=== PATIENT | female | born 1950 | race Caucasian/White ===

== ENCOUNTER → 2023-10-27 | Outpatient (CLI) | payer MEDICARE, SELFPAY ==
--- NOTE | 2023-10-27 14:17 | BI_ITS ---
MAMMOGRAPHY - BILATERAL SCREENING REASON FOR EXAM: Female, 73 years old. Routine annual screening examination. PERTINENT HISTORY: Sister with breast cancer. TECHNIQUE: Digital bilateral breast casper (3D mammographic acquisition) in the CC and MLO projections. 2-D mediolateral oblique (MLO) and craniocaudad (CC) views of both breasts were obtained. CAD: Full Field Digital Mammography with Computer Added Detection was performed. COMPARISON: None. Baseline examination. FINDINGS: Breast Composition: The breasts are almost entirely fatty. There are no dominant masses or suspicious calcifications. No other significant abnormalities are identified. There has been no significant change since the prior study. BI/SCRN MAMM (CAD)W/CASPER BILAT IMPRESSION: Stable bilateral screening mammogram. Yearly follow-up mammogram recommended. (A) ASSESSMENT CATEGORY: BIRADS Category 1: Negative. A letter regarding these results will be sent to the patient by the facility within 30 days. Approximately 10% of breast cancers are not detected by mammography. A normal mammogram should not delay biopsy of a clinically suspicious abnormality. [id number] Electronically Signed: Roshan Hobson MD at 15:10 EDT ,
--- NOTE | 2023-10-27 14:35 | BD_ITS ---
STUDY: DUAL ENERGY X-RAY ABSORPTIOMETRY / DXA REASON FOR EXAM: Female, 73 years old. [id number] TECHNIQUE: Bone Mineral Density (BMD) measurements of lumbar spine and bilateral hips were obtained. COMPARISON: None. FINDINGS: Lumbar Spine (L1-L4): g/cm2 (0.971) / T-score (-0.4) / Z-score (1.8) Findings are suggestive of normal bone density with a low fracture risk. Left Femur Total: g/cm2 (0.875) / T-score (-0.6) / Z-score (1.2) Left Femoral Neck: g/cm2 (0.696) / T-score (-1.4) / Z-score (0.6) Right Femur Total: g/cm2 (0.891) / T-score (-0.4) / Z-score (1.3) Right Femoral Neck: g/cm2 (0.783) / T-score (-0.6) / Z-score (1.4) BD/Dexa Bone Density Study IMPRESSION: The patient is considered osteopenic as outlined below according to World [place] C Organization (WHO) criteria with a low fracture risk. Reference Information: The T-score is the number of standard deviations above or below the standard which is normal for young adults at their peak bone mineral density. The World Health Organization (WHO) interprets the T-scores as follows: Above -1 Normal bone density Between -1 and -2.5 Osteopenia Equal to / or below -2.5 Osteoporosis As a practical clinical guideline, osteopenia may be graded as follows: Mild -1 through -1.5 Moderate -1.6 through -2.0 Severe -2.1 through -2.4 The Z-score is the number of standard deviations above or below age-matched controls. A Z-score of less than -1.5 would be considered abnormal. References: 1. NIH Osteoporosis and Related Bone Diseases www osteo.org 2. International Society for Clinical Densitometry www iscd.org 3. National Osteoporosis Foundation www nof.org Electronically Signed: Roshan Hobson MD at 13:38 EDT ,
== END | disposition home or self-care (01) ==
PROVIDERS: PCP Nurse Practitioner Family; Referring Provider Nurse Practitioner Family; Visit Provider Nurse Practitioner Family
DX: Z12.31 Encounter for screening mammogram for malignant neoplasm of breast (principal); Z78.0 Asymptomatic menopausal state
CPT/HCPCS: 77063; 77067; 77080

== ENCOUNTER → 2024-06-28 | Outpatient (CLI) | payer MEDICARE, SELFPAY ==
--- NOTE | 2024-06-28 09:43 | CDU_ITS ---
Reason For Study Reason For Study: Carotid artery stenosis, Dizziness Rt. Velocities/BP Lt. Velocities/BP Prox CCA 91.9/23.9 cm/sec. Prox CCA 79.5/23.4 cm/sec. Mid CCA 82.5/23 cm/sec. Mid CCA 77.3/21.2 cm/sec. Dist CCA 71/17.3 cm/sec. Dist CCA 61.9/21.2 cm/sec. Prox ICA 53.5/17.7 cm/sec. Prox ICA 42.8/15.4 cm/sec. Mid ICA 93.8/38.1 cm/sec. Mid ICA 57.9/21.7 cm/sec. Dist ICA 97.1/33.3 cm/sec. Dist ICA 96.4/26.7 cm/sec. Rt. ICA/CCA = 1.18. Lt. ICA/CCA = 1.25. Prox ECA 100.3/15.7 cm/sec. Prox ECA 101.1/11.4 cm/sec. Rt. Vert. 67.4/8 cm/sec. Lt. Vert. 47.9/11.6 cm/sec. Right Extracranial There is homogeneous, smooth atherosclerotic plaque noted in the right common carotid artery. There is intimal thickening but no significant atherosclerotic plaque noted in the right internal carotid artery. There is intimal thickening but no significant atherosclerotic plaque noted in the right external carotid artery. Antegrade flow is noted in the right vertebral artery. Left Extracranial There is homogeneous, smooth atherosclerotic plaque noted in the left common carotid artery. There is homogeneous, smooth atherosclerotic plaque noted in the left internal carotid artery. There is heterogeneous, irregular atherosclerotic plaque noted in the left external carotid artery. Antegrade flow is noted in the left vertebral artery. Procedure Carotid Duplex [id number]. This is a Carotid Duplex examination using B-mode, color flow and specral Doppler. Exam performed in department. VL/Carotid Duplex Ultrasound Interpretation Summary No significant atherosclerotic plaque or stenosis noted in the right internal c arotid artery. Mild (<50%) stenosis left extracranial internal carotid. Flow within the vertebral arteries is antegrade bilaterally. Ordering Physician: Giulia Gomez Referring Physician: Giulia Gomez Performed By: Yesenia Joy RVT
== END | disposition home or self-care (01) ==
LOC: CVS 09:42
PROVIDERS: PCP Nurse Practitioner Family; Referring Provider Nurse Practitioner Family; Visit Provider Nurse Practitioner Family
DX: I65.23 Occlusion and stenosis of bilateral carotid arteries (principal)
CPT/HCPCS: 93880

== ENCOUNTER 2024-08-20 19:44 | Emergency (ER) | payer MEDICARE, SELFPAY ==
[2024-08-20 19:45] VITALS: BP 136/80; PULSE 93; RESP 16; TEMP 36.4; O2SAT 100; BMI 28.1
--- NOTE | 2024-08-20 20:03 | RAD_ITS ---
PROCEDURE: KNEE 4 OR MORE VIEWS 08/20/2024 REASON FOR EXAM: RASH TECHNIQUE: KNEE 4 OR MORE VIEWS COMPARISON: None. FINDINGS: Bones: Diffuse osseous demineralization. No acute fracture. No aggressive osseous lesions. Joints: Severe degenerative changes. Effusion: Small joint effusion. Soft tissues: Soft tissues are unremarkable. RAD/Knee 4 or More Views IMPRESSION: DEGENERATIVE OSTEOARTHROSIS. NO ACUTE FINDINGS. Reading Location: [id number]
[2024-08-20] MEDS: 0.9% Normal Saline (1000mL) 1,000 ML 999 ML IV (20:09)
--- NOTE | 2024-08-20 20:19 | EX.ED.DYSGE1 ---
HPI History of Present Illness Chief Complaint: Rash Narrative Narrative: Patient is a 74-year-old female with no known significant past medical history who presents to the emergency department the chief complaint of rash on the right leg. States that yesterday she noted that she had a spot that was very itchy on her right leg and states that she noted today that the rash worsened and she was concerned that this may be related to tick bite. Patient denies any known tick exposure. Patient notes that she noted the rash was spreading and becoming more red therefore she became concerned and came here to be further evaluated. Patient denies any possibility of poison oak or poison delonte exposure. Patient's denies any new medications. PFSH PFS Home Medications ?Medication ?Instructions ?Recorded ?Last Taken ?Type doxycycline hyclate 100 mg capsule 100 mg PO BID 7 days #14 caps 08/20/24 Unknown Rx losartan 50 mg-hydrochlorothiazide 1 tab PO DAILY 08/20/24 Unknown History 12.5 mg tablet Allergy/AdvReac Type Severity Reaction Status Date / Time No Known Allergies Allergy Verified 08/20/24 19:47 Family History no significant family his Surgical History no surgical history Social History Smoking Status: Never smoker ROS ROS ED ROS Narrative Constitutional: Denies any fevers, chills, headaches Neurological: Denies numbness, weakness, tingling Musculoskeletal: Denies any knee pain Skin: Complains of rash as noted above EXAM Physical Exam Narrative Exam Narrative: General: Patient was lying in bed rest comfortably did not appear to be acute distress Head: Atraumatic, normocephalic Eyes: PERRL bilaterally, EOMI bilateral, no conjunctival injection noted Neck: Soft, supple, trachea midline Cardiovascular: Regular rate and rhythm no murmurs gallops rubs noted Respiratory: Clear to auscultation bilaterally Musculoskeletal: Patient has full range of motion of her knee without any pain Extremities: DP pulses +2/4 in bilateral extremities, +5/5 strength noted in the bilateral upper and lower extremities Neurological: Patient is following commands knew that she was at [facility] year is 2024 Skin: Patient has a raised rash that is red in nature as well as blanches no petechia no sloughing of the skin no purpura noted no crepitus noted Const Vital Signs: 08/20/24 19:45 Temperature 97.5 F L Temperature Source Temporal Pulse Rate 93 Respiratory Rate 16 Blood Pressure 136/80 H Blood Pressure Mean 98 Pulse Ox 100 Oxygen Delivery Method Room Air MDM MDM MDM Narrative Medical decision making narrative: Patient is a 74-year-old female who presented to the emergency department with chief complaint of rash to the right leg. On the differential diagnosis includes but limited to contact dermatitis, cellulitis, pemphigus vulgaris although I have low suspicion for this as this is not a painful rash, bullous pemphigoid, cellulitis. Once workup is obtained reviewed she will be reevaluated. Patient be given a gram of Rocephin. Patient CBC was reviewed showed no evidence leukocytosis white blood count normal at 8, hemoglobin 13.8, platelet count of 242. Patient's sodium normal 140, potassium 4, creatinine normal at 1.08. Patient AST and ALT were 16 and 9 respectively. Patient's lactic acid normal at 1.6. Patient's x-ray of her knee reviewed by myself and by radiology showed degenerative osteoarthritis no other acute findings. On reevaluation the patient the rash is the same when she arrived and has not worsened. On reevaluation patient and she would like to go home this point time. She was advised to keep a close eye on this rash. We will place her on doxycycline and she was advised to take this as prescribed. She was encouraged to follow-up with her doctor in the outpatient setting otherwise. She is agreeable to plan all question concerns answered she was discharged home in stable condition Lab Data Labs: Laboratory Results - last 24 hr 08/20/24 20:05 WBC 8.0 RBC 4.54 Hgb 13.8 Hct 40.2 MCV 88.5 MCH 30.4 MCHC 34.3 RDW Std Deviation 46.9 H RDW Coeff of [place] 14.5 Plt Count 242 MPV 11.9 Immature Gran % (Auto) 0.300 Neut % (Auto) 63.6 Lymph % (Auto) 22.7 [place] % (Auto) 8.9 Eos % (Auto) 3.9 Baso % (Auto) 0.6 Absolute Neuts (auto) 5.1 Absolute Lymphs (auto) 1.81 Nucleated RBC % 0 Sodium 140 Potassium 4.0 Chloride 103 Carbon Dioxide 24.6 Anion Gap 12 BUN 17 Creatinine 1.08 Estim Creat Clear Calc 38.54 L Est GFR (MDRD) Non-Af 54 L BUN/Creatinine Ratio 16.1 Glucose 112 H Lactic Acid 1.6 Calcium 9.4 Total Bilirubin 0.25 AST 16 ALT 9 Alkaline Phosphatase 68 Total Protein 7.1 Albumin 3.8 Globulin 3.3 Albumin/Globulin Ratio 1.2 Radiography Diagnostic Testing: Clinical Impression(s) from Imaging Studies Knee X-Ray 08/20/24 20:03 IMPRESSION: DEGENERATIVE OSTEOARTHROSIS. NO ACUTE FINDINGS. Reading Location: [facility] Discharge Plan Triage Chief Complaint: Rash ED Provider: Lalo Honeycutt Dx/Rx/DC Orders Clinical Impression: Rash, Cellulitis Prescriptions: New doxycycline hyclate 100 mg capsule 100 mg PO BID 7 Days Qty: 14 0RF No Action losartan-hydrochlorothiazide 50-12.5 mg tablet 1 tab PO DAILY Primary Care Provider: Giulia Gomez Referrals: Giulia Gomez, [facility] [Primary Care Provider] - Activity Restrictions/Additional Instructions: Take antibiotics as prescribed. Return with worsening symptoms or any other concerns. Keep a close eye on this if this is rapidly expanding and worsening you need to return to the emergency department immediately. According to the online website the pharmacy at [facility] will be open tomorrow at 10 AM therefore a prescription was sent there Print Language: Mongolian Disposition Disposition: Home, Self Care
--- OUTSIDE RECORDS SUMMARY | 2024-08-20 20:46 | XMS RPT_ITS | CCD ---
Author Organization [facility] Care Team Providers Care Seed Cleaner Name Role Phone JENNIFER KNOX Consulting Unavailable IDRIS HORNER DO Attending Unavailable IDRIS HORNER DO Primary Care Unavailable IDRIS HORNER DO Admitting Unavailable JENNIFER KNOX Referring Unavailable PROVIDER, UNKNOWN Consulting Unavailable Jason PROPERTY CLAIM REP-C, Jennifer Primary Care Provider [phone] Jason PROPERTY CLAIM REP-C, Jennifer Attending Provider [phone] Jason PROPERTY CLAIM REP-C, Jennifer Referring Provider Jennifer Knox Referring Unavailable Jennifer Knox Primary Care Unavailable Jennifer Knox Attending Unavailable Jennifer Knox Referring Unavailable Jason, Jennifer Primary Care Unavailable Jennifer Knox Attending Unavailable Problems Active Problems Problem Classification Problem Date Documented Da te Episodic/Chronic Occlusion or stenosis of precerebral arteries (1 source) Occlusion and stenosis of bilateral carotid arteries; Translations: [Occlusion and stenosis of bilateral carotid arteries] Onset: 07-03-2024 Chronic Past or Other Problems Problem Classification Problem Date Documented Da te Episodic/Chronic Other screening for suspected conditions (not mental disorders or infectious disease) (1 source) Encounter for screening mammogram for malignant neoplasm of breast; Translations: [Encounter for screening mammogram for malignant neoplasm of breast] Onset: 11-18-2023 Episodic Results Test Name Value Interpretation Reference Range Facility Carotid Duplex Ultrasoundon 06-28-2024 Carotid Duplex Ultrasound [facility] [address] [place] [address] Carotid Duplex Ultrasound 06/28/24 0946 MR#: [id number] Acct: [id number] Name: ALISIA MANDUJANO Rep #: [id number] : 1950 74 From: Lucio Austin MD Attending Dr: Jennifer Knox, PROPERTY CLAIM REP-C Status: REG CLI Ordering Dr: Jennifer Knox PROPERTY CLAIM REP-C Date: 06/28/24 Location: [facility] Sex: F C Admitted: Reason For Study Reason For Study: Carotid artery stenosis, Dizziness Rt. Velocities/BP Lt. Velocities/BP Prox CCA 91.9/23.9 cm/sec. Prox CCA 79.5/23.4 cm/sec. Mid CCA 82.5/23 cm/sec. Mid CCA 77.3/21.2 cm/sec. Dist CCA 71/17.3 cm/sec. Dist CCA 61.9/21.2 cm/sec. Prox ICA 53.5/17.7 cm/sec. Prox ICA 42.8/15.4 cm/sec. Mid ICA 93.8/38.1 cm/sec. Mid ICA 57.9/21.7 cm/sec. Dist ICA 97.1/33.3 cm/sec. Dist ICA 96.4/26.7 cm/sec. Rt. ICA/CCA = 1.18. Lt. ICA/CCA = 1.25. Prox ECA 100.3/15.7 cm/sec. Prox ECA 101.1/11.4 cm/sec. Rt. Vert. 67.4/8 cm/sec. Lt. Vert. 47.9/11.6 cm/sec. Right Extracranial There is homogeneous, smooth atherosclerotic plaque noted in the right common carotid artery. There is intimal thickening but no significant atherosclerotic plaque noted in the right internal carotid artery. There is intimal thickening but no significant atherosclerotic plaque noted in the right external carotid artery. Antegrade flow is noted in the right vertebral artery. Left Extracranial There is homogeneous, smooth atherosclerotic plaque noted in the left common carotid artery. There is homogeneous, smooth atherosclerotic plaque noted in the left internal carotid artery. There is heterogeneous, irregular atherosclerotic plaque noted in the left external carotid artery. Antegrade flow is noted in the left vertebral artery. Procedure Carotid Duplex 52396. This is a Carotid Duplex examination using B-mode, color flow and specral Doppler. Exam performed in department. VL/Carotid Duplex Ultrasound Interpretation Summary No significant atherosclerotic plaque or stenosis noted in the right internal carotid artery. Mild (<50%) stenosis left extracranial internal carotid. Flow within the vertebral arteries is antegrade bilaterally. Ordering Physician: Jennifer Knox Referring Physician: Jennifer Knox Performed By: Yesenia Joy RVT 06/28/241743 Date Lucio Austin MD CC: PROPERTY CLAIM REP-C Jennifer Knox Date Dictated: 06/28/24945 Date Transcribed: 06/28/241743 Lace Burn Out Tender: Signed [facility] Duplex ultrasound of carotid artery reportOrdered By: Lucio Austin on 06-28-2024 Study report [facility] [address] [place] [address] Carotid Duplex Ultrasound 06/28/24945 MR#: [id number] Acct: [id number] Name: ALISIA MANDUJANO Rep #:[id number] : 1950 74 From: Lucio Austin MD Attending Dr: ALEKSANDAR Morrow Status: REG CLI Ordering Dr: Jennifer Knox PROPERTY CLAIM REPIsaíasC Date: 06/28/24 Location: [facility] Sex: F C Admitted: Reason For Study Reason For Study: Carotid artery stenosis, Dizziness Rt. Velocities/BP Lt. Velocities/BP Prox CCA 91.9/23.9 cm/sec. Prox CCA 79.5/23.4 cm/sec. Mid CCA 82.5/23 cm/sec. Mid CCA 77.3/21.2 cm/sec. Dist CCA 71/17.3 cm/sec. Dist CCA 61.9/21.2 cm/sec. Prox ICA 53.5/17.7 cm/sec. Prox ICA 42.8/15.4 cm/sec. Mid ICA 93.8/38.1 cm/sec. Mid ICA 57.9/21.7 cm/sec. Dist ICA 97.1/33.3 cm/sec. Dist ICA 96.4/26.7 cm/sec. Rt. ICA/CCA = 1.18. Lt. ICA/CCA = 1.25. Prox ECA 100.3/15.7 cm/sec. Prox ECA 101.1/11.4 cm/sec. Rt. Vert. 67.4/8 cm/sec. Lt. Vert. 47.9/11.6 cm/sec. Right Extracranial There is homogeneous, smooth atherosclerotic plaque noted in the right common carotid artery. There is intimal thickening but no significant atherosclerotic plaque noted in the right internalcarotid artery. There is intimal thickening but no significant atherosclerotic plaque noted in the right externalcarotid artery. Antegrade flow is noted in the right vertebral artery. Left Extracranial There is homogeneous, smooth atherosclerotic plaque noted in the left common carotid artery. There is homogeneous, smooth atherosclerotic plaque noted in the left internal carotid artery. There is heterogeneous, irregular atherosclerotic plaque noted in the left external carotid artery. Antegrade flowis noted in the left vertebral artery. Procedure Carotid Duplex 98812. This is a Carotid Duplex examination using B-mode, color flow and specral Doppler. Exam performed in department. VL/Carotid Duplex Ultrasound Interpretation Summary No significant atherosclerotic plaque or stenosis noted in the right internal carotid artery. Mild (<50%) stenosis left extracranial internal carotid. Flow within the vertebral arteries is antegrade bilaterally. Ordering Physician: Jennifer Knox Referring Physician: Jennifer Knox Performed By: Yesenia Joy T 06/28/24 1744 Date _ Lucio Austin MD CC: PROPERTY CLAIM REP-C Jennifer Knox ~ Date Dictated: 05/06/25 0946 Date Transcribed: 06/28/24 1744 Lace Burn Out Tender: Signed [facility] Other ED MED ADMINISTRATION DETAIL on 06-12-2024 ED MED ADMINISTRATION DETAIL Rn Transport Medication Administration Record [id number] [place] [address] [id number] 06/08/2024 Patient: ALISIA MANDUJANO Sex: Female : 1950 Age: 74y MEASUREMENTS: Wt: 68.0 kg, Ht/Jovany: 70.0 in, BMI: 21.52 ALLERGIES: No known drug allergies Medication Ordered Medication Administration Date/Time IV NS 0.9 % 1000 06:35 06/08 IV NS 0.9 % 1000 mL started in bag#1 1000 mL at Started mL at 999 mL/hr 999 mL/hr over 1 hour(s) via Site# 1. Allergies verified and 06:35 06/08/2024 (NOW x1) confirmed 5 rights. IV patency established. IV site checked: no pain, Estephania Mansfield R.N. redness, or swelling. IV flushed thoroughly pre-medication Stopped administration. Information reviewed with patient including reason 09:59 06/08/2024 for taking this medication. Verbalizes understanding. Completed per Shobha Wood R.N. protocol. - 06:35 Estephania Mansfield R.N. Scanned 09:59 06/08 Medication Discontinued: bag #1. Total amount infused: 800 mL. IV patency established. IV site checked: no pain, redness, or swelling. IV flushed thoroughly post-medication administration. - 10:24 Shobha Wood R.N. Ondansetron IVP 4 06:36 06/08 Ondansetron IVP 4 mg given over 1 minute(s) via Given mg (NOW x1) Site# 1. Allergies verified and confirmed 5 rights. IV patency 06:36 06/08/2024 established. IV site checked: no pain, redness, or swelling. IV Estephania Mansfield R.N. flushed thoroughly pre-medication administration. Information Scanned reviewed with patient including reason for taking this medication. Verbalizes understanding. - 06:37 Estephania Mansfield R.N. 1 of 2 Rn Transport Medication Ordered Medication Administration Date/Time Meclizine (Antivert) 06:36 04 Meclizine (Antivert) PO 25 mg given. Allergies verified Given PO 25 mg (NOW x1) and confirmed 5 rights. Information reviewed with patient including 06:36 06/08/2024 reason for taking this medication. Verbalizes understanding. - Estephania Mansfield R.N. 06:36 Estephania Mansfield R.N. Scanned LORazepam 07:16 06/08 LORazepam (Ativan) IVP 1 mg given via Site# 1. Given (Ativan) IVP 1 mg Allergies verified. IV patency established. IV site checked: no pain, 07:16 06/08/2024 (NOW x1) redness, or swelling. IV flushed thoroughly pre-medication tracy Dubon. IVP given by nurse. Information reviewed with R.N. patient and spouse including reason for taking this medication and Scanned sedative warning. Verbalizes understanding. Medication Wastage: 1 mg wasted. - 07:18 Milton Beckman R.N. Meclizine (Antivert) 07:40 06/08 Meclizine (Antivert) PO 25 mg given. Allergies verified Given PO 25 mg (NOW x1) and confirmed 5 rights. Information reviewed with patient including 07:40 06/08/2024 reason for taking this medication. Verbalizes understanding. - Milton Beckman, 07:40 Milton Beckman R.N. R.N. Scanned Ear Wax Remover 09:04 06/08 Ear Wax Remover (Carbamide / Debrox) 5 drp given. Given (Carbamide / Given in the right ear. - 09:04 Leida Houser R.N. 09:04 06/08/2024 Debrox) 5 drp (NOW Leida Houser R.N. x1, right ear) Not Scanned 2 of 2 [facility] ED NURSES CLINICAL NOTEon ED NURSES CLINICAL NOTE Nurse Narrative Nurse Clinical Narrative [address] [place] [address] [id number] 06/08/2024 06:02:00 Patient: ALISIA MANDUJANO Sex: Female : 1950 Age: 74y Disposition: Discharge to Home Disposition Decision Time: 10:04 06/08/2024 Departure Time: 10:33 06/08/2024 TRIAGE Arrived by EMS. Historian: (patient). Primary physician (Jason Torres)). Triage time: 06:05 06/08/2024. Acuity: LEVEL 3. Chief Complaint: DIZZINESS, WEAKNESS, LIGHT HEADED and VERTIGO. Alert. No acute distress. This started just prior to arrival 0500 this AM. The patient has had weakness. ( Pt woke up with a feeling of the room dropping down. Pt did not attempt to stand up, denies CHANCE or vision changes. Pt did vomit X1 at home after EMS arrived. no diarrhea. No CP). SEPSIS SCREEN: NEGATIVE. SIRS criteria negative. No possible sources of infection. -- 06:24 06/08/24 EDT Estephania Mansfield R.N. 06:12 06/08/24. BP: 148/74 (regular cuff) taken on left arm, while lying. MAP: 99. HR: 72. Regular and normal rate. RR: 16. Regular and labored. Rate is normal. O2 saturation: 96% on room air. Temperature: 97.7 F (oral). Pain level now 0/10. -- 06:23 06/08/24 EDT Estephania Mansfield R.N. Measurements: 06:12 06/08/24 Wt: 68.0 kg, Ht/Jovany: 70.0 in, BMI: 21.52 -- 06:22 06/08/24 EDT Estephania Mansfield R.N. Medications: 1 of 5 Nurse Narrative Sutab 1.479-0.188-0.225 gram tablet: TAKE DIRECTED -- 06:26 06/08/24 EDT Estephania Mansfield R.N. losartan 50 mg-hydrochlorothiazide 12.5 mg tablet -- 06:06/08/24 EDT Estephania Mansfield R.N. losartan 50 mg-hydrochlorothiazide 12.5 mg tablet: 1 tab once a day . -- 06:28 06/08/24 EDEmiliano Mansfield R.N. Sutab 1.479-0.188-0.225 gram tablet: (Pt not taking at this time) -- 06:06/08/24 KIMBERLY Mansfield R.N. Allergies: no known drug allergies -- 06:06/08/24 KIMBERLY Mansfield R.N. Problems: Hypertension -- 06:06/08/24 KIMBERLY Mansfield R.N. ADDITIONAL SURGERIES: no known surgical history -- 06:06/08/24 KIMBERLY Mansfield R.N. History 06:06/08/24. SOCIAL HX: Never smoker. No alcohol use or drug use. The patient has not traveled outside the [place] Infectious disease exposure: No infectious disease exposure. ABUSE ASSESSMENT: The patient answered yes to the question(s) Do you feel safe in your home? and no to the question(s) Are you afraid to go home?. SELF HARM ASSESSMENT: Self harm assessment was performed. The patient answered no to the question(s) Have you recently felt down, depressed, or hopeless? and Do you have thoughts of harming or killing yourself?. FALL RISK ASSESSMENT: Fall risk assessment completed. Risk factors identified include dizziness and patient age greater than 65 years. Fall interventions initiated. Side rails up x2. Bed in low position. Brakes on. Patient in yellow slippers. Family at bedside. Call light in reach of patient. Instructed not to get up without assistance. Instructions given to patient and family including fall prevention information. Verbalizes understanding. -- 06:06/08/24 KIMBERLY Mansfield R.N. Interventions 2 of 5 Nurse Narrative 06:06/08/24. Identification band on patient. Advanced care plan discussed with patient. Patient does not have advanced directive. -- 06:06/08/24 KIMBERLY Mansfield R.N. PHYSICAL ASSESSMENT 06:45 06/08/24. GENERAL / NEURO / PSYCH: Oriented X 4. Appears anxious. Alert. Speech within normal limits. HEENT: No facial asymmetry noted. Pupils equal, round and reactive to light. Abnormal ear exam (Pt feels like the room is falling down). RESPIRATORY: Breath sounds within normal limits. Respirations not labored. CVS: Normal sinus rhythm noted. Capillary refill less than 2 seconds. GI / : Abdomen soft and nontender. SKIN: Skin is warm and dry. -- 06:45 06/08/24 KIMBERLY Mansfield R.N. NURSING PROGRESS NOTES 06:24 06/08/24. Site #1 started via IV with an 18g angiocath with aseptic technique and good blood return; 1 attempt. Blood drawn: rainbow set and moon tube(s). Labeled in the presence of the patient and sent to the lab. Saline lock flushed with 5 mL saline. -- 06:34 06/08/24 EDT Estephania Mansfield R.N. 06:34 06/08/24. Rounding: Pain: assessed pain level. Position: states comfortable. Proximity of possessions / care items: call light within easy reach. Set expectations: advised patient of rounding protocol timing. Two patient identifiers checked. Call light placed in reach. Side rails up x 2. Bed placed in lowest position. Brakes of bed on. -- 06:34 06/08/24 EDT Estephania Mansfield R.N. 06:35 06/08/24. IV NS 0.9 % 1000 mL started in bag#1 1000 mL at 999 mL/hr over 1 hour(s) via Site# 1. Allergies verified and confirmed 5 rights. IV patency established. IV site checked: no pain, redness, or swelling. IV flushed thoroughly pre-medication administration. Information reviewed with patient including (more content not included)... [facility] ED ORDER SHEET (CPOE ONLY)on 06-12-2024 ED ORDER SHEET (CPOE ONLY) Order Sheet Order Sheet [address] [place] [address] [id number] 06/08/2024 Patient: ALISIA MANDUJANO Sex: Female : 1950 Age: 74y MEASUREMENTS: Wt: 68.0 kg, Ht/Jovany: 70.0 in, BMI: 21.52 ALLERGIES: No known drug allergies MEDICATION/IV/DRIP/FLU ID ORDERS Order Description Priority Entered Acknowledged Completed IV NS 0.9 %1000 mL at 999 06:22 06/08/2024 06:29 06:35 mL/hr (NOW x1) Idris Horner D.O. 06/08/2024 06/08/2024 Estephania Rutt, R.N. Estephania Rutt, R.N. Ondansetron IVP4 mg (NOW x1) 06:23 06/08/2024 06:29 06:37 Idris Horner D.O. 06/08/2024 06/08/2024 Joaquin Mendoza R.N. Meclizine (Antivert) PO25 mg 06:23 06/08/2024 06:29 06:36 (NOW x1) Idris Horner D.O. 06/08/2024 06/08/2024 Joaquin Mendoza R.N. LORazepam (Ativan) IVP1 mg 07:03 06/08/2024 07:18 (NOW x1) Idris Horner D.O. 06/08/2024 Milton Beckman R.N. Meclizine (Antivert) PO25 mg 07:35 06/08/2024 07:36 07:40 (NOW x1) Haroldo Case M.D. 06/08/2024 06/08/2024 Milton Rose 1 of 4 Order Sheet Joaquin Beckman R.N. Reason for ordering with alerts: Clinical consideration given --07:35 06/08/2024 Haroldo Case M.D. Ear Wax Remover (Carbamide / 08:53 06/08/2024 09:04 Debrox)5 drp (NOW x1, right ear) Haroldo Case M.D. 06/08/2024 Leida Houser R.N. LAB ORDERS Order Description Priority Entered Acknowledged Collected Completed CBC w Diff Stat Stat 06:22 06/08/2024 06:29 06/08/2024 06:29 06/08/2024 Marcial Leyva R.N. Anne Rutt, R.N. CMP Stat Stat 06:22 06/08/2024 06:29 06/08/2024 06:29 06/08/2024 Marcial Leyva R.N. Anne Rutt, R.N. Troponin-I Stat Stat 06:22 06/08/2024 06:29 06/08/2024 06:29 06/08/2024 Idris Didur, Joaquin Garcia R.N. EKG - ED Stat Stat 06:22 06/08/2024 06:29 06/08/2024 06:29 06/08/2024 Marcial Leyva R.N. Anne Rutt, R.NKatherine Lactate, Serum Stat Stat 06:22 06/08/2024 06:29 06/08/2024 06:29 06/08/2024 Marcial Leyva R.N. Anne Rutt, R.N. Urinalysis Stat Stat 06:22 06/08/2024 Cancelled: Verbal per Physician Idris Horner D.O. 10:26 EDT Shobha Wood R.N. TSH Stat Stat 06:25 06/08/2024 06:29 06/08/2024 06:30 06/08/2024 Marcial Leyva R.N. Anne Rutt, R.N. 2 of 4 Order Sheet Flu Swab (Influenzae Stat 06:27 06/08/2024 06:29 06/08/2024 06:30 06/08/2024 AAg) Stat Marcial Leyva R.N. Anne Rutt, R.N. Rapid COVID (SARS) Stat 06:27 06/08/2024 06:29 06/08/2024 06:30 06/08/2024 ANTIGEN TEST Stat Marcial Leyva R.N. Anne Rutt, R.N. DIAGNOSTIC STUDY ORDERS Order Description Priority Entered Acknowledged Completed Chest 1V Stat Stat 06:22 06/08/2024 06:29 06:43 Idris Horner D.O. 06/08/2024 06/08/2024 Joaquin Mendoza R.N. Order Comments: 06:22 06/08/2024: Status: Not . Idris Horner D.O. Reason for Study: Pneumonia CT Brain wo Cont Stat Stat 06:23 06/08/2024 06:29 06:43 Idris Horner D.O. 06/08/2024 06/08/2024 Joaquin Mendoza RAleah Reason for Study: Dizziness STAFF ORDERS Order Description Priority Entered Acknowledged Collected Completed Vital Signs every 30 06:22 06/08/2024 06:29 06/08/2024 06:30 06/08/2024 minutes Marcial Levya R.N. Anne Rutt, R.N. Supervisor Publications Production 06:22 06/08/2024 06:29 06/08/2024 06:29 06/08/2024 Marcial Leyva R.N. Anne Rutt, R.N. Oxygen titrate to 92% 06:22 06/08/2024 06:29 06/08/2024 06:30 06/08/2024 Marcial Leyva R.N. Anne Rutt, R.N. 3 of 4 Order Sheet Vitals - Orthostatic 06:23 06/08/2024 06:29 06/08/2024 10:25 06/08/2024 Marcial Leyva R.N. Natalie Yoder, R.N. Cerumen Disimpaction 08:53 06/08/2024 09:05 06/08/2024 10:25 06/08/2024 Leida Sorensen Natalie Yoder, M.D. R.N. RKatherineNKatherine [Electronically signed by Haroldo Case M.D. (06/08/2024 10:12 EDT)] 4 of 4 [facility] ED PHYSICIAN CLINICAL REPORT on 06-12-2024 ED PHYSICIAN CLINICAL REPORT Narrative Physician Clinical Narrative [address] [address] [id number] 06/08/2024 06:02:00 Patient: ALISIA MANDUJANO Sex: Female : 1950 Age: 74y Disposition: Discharge to Home Disposition Decision Time: 10:04 06/08/2024 Departure Time: 10:33 06/08/2024 Measurements Wt: 68.0 kg, Ht/Jovany: 70.0 in, BMI: 21.52 Initial Vital Sign Measured Time BP MAP HR RR O2Sat ETCO2 Temp Pain GCS RTS 06:08 06/08/2024 72 96% Time Seen: 05:54 06/08/2024. Arrived- By ambulance. Historian- patient. Independent historian- EMS personnel. HISTORY OF PRESENT ILLNESS Chief Complaint: DIZZINESS. This started today and is still present. Described as a sense of rotation. Severity described as moderate at its maximum. The patient has had nausea and vomiting. Similar symptoms previously. None. Recent medical care: Not recently seen/assessed. REVIEW OF SYSTEMS : No difficulty with urination. RESPIRATORY: No cough or difficulty breathing. CONSTITUTIONAL: No fever or chills. GI: No black stools, abdominal pain or diarrhea. CVS: No chest pain or palpitations. EYES: No double 1 of 28 Narrative vision. NEUROLOGICAL: The patient has had a headache. No weakness or fainting episodes. No difficulty walking. ENDO/HEME/LYMPH: No enlarged lymph nodes. SKIN: No skin rash. THROAT: No sore throat. Status: Not . PAST HISTORY See nurses notes. Hypertension Surgeries: no known surgical history Medications: losartan 50 mg-hydrochlorothiazide 12.5 mg tablet: 1 tab once a day . Sutab 1.479-0.188-0.225 gram tablet: (Pt not taking at this time) Allergies: no known drug allergies SOCIAL HISTORY Never smoker. No alcohol use or drug use. ADDITIONAL NOTES The nursing notes have been reviewed. PHYSICAL EXAM Appearance: Alert. Patient in mild distress. Eyes: Pupils equal, round and reactive to light. No nystagmus. ENT: TM's normal. Dry mucous membranes present. Pharynx normal. Neck: Normal inspection. Neck supple. CVS: Normal heart rate and rhythm. Heart sounds normal. Pulses normal. Respiratory: No respiratory distress. Painless inspiration. Breath sounds normal. Abdomen: Soft and nontender. No organomegaly. Back: Normal inspection. 2 of 28 Narrative Skin: Skin warm and dry. No rash. Extremities: Extremities exhibit normal ROM. No lower extremity edema. Neuro: Alert. Oriented X 3. Mood/affect normal. Speech normal. No motor deficit. No sensory deficit. LABS, X-RAYS, AND EKG 12-LEAD EKG: EKG time: 06:12 06/08/2024. Normal sinus rhythm. Rate: 65. Normal P waves. Normal QRS complex. Normal ST and T waves. The study has been interpreted contemporaneously by me. The EKG appears to be a good tracing. Interpretation time: 06:13 06/08/2024. Chest X-ray: No acute disease. Views: PA. Technique: good. The X-rays were independently viewed by me. Interpretation time: 07:14 06/08/2024. Laboratory Tests: CORONAVIRUS (SARS) ANTIGEN TEST Final DEL: 06/08/2024 06:25:00 EDT MsgRcvd: 06/08/2024 07:04 EDT Lab Test Result Reference Status Received Comments NORMAL: 06/08/2024 SARS ANTIGEN NEGATIVE Final NEGATIVE 07:04 EDT INTERNAL 06/08/2024 PASS Final CONTROL 07:04 EDT EXTERNAL QC 06/08/2024 YES Final DONE? 07:04 EDT 3 of 28 Narrative Lab Test Result Reference Status Received Comments SARS-CoV-2 THIS TEST IS BEING USED UNDER THE FDA EUA PROCEDURE. THIS ASSAY HAS BEEN VALIDATED AT [facility] FOR USE WITH NASAL AND NASOPHARYNGEAL SWAB SPECIMENS. INTERPRETIVE DATA TEST RESULTS SHOULD ALWAYS BE CONSIDERED IN THE CONTEXT OF CLINICAL OBSERVATIONS AND EPIDEMIOLOGICAL DATA IN MAKING FINAL DIAGNOSIS AND PATIENT MANAGEMENT DECISIONS. PATIENT MANAGEMENT SHOULD FOLLOW CURRENT CDC 4 of 28 GUIDELINES. THE [facility] SARS ANTIGEN JEAN CLAUDE DOES Narrative INFLUENZA VIRUS RAPID A/B Final DEL: 06/08/2024 06:25:00 EDT MsgRcvd: 06/08/2024 07:04 EDT Lab Test Result Reference Status Received Comments NEGATIVE 06/08/2024 INFLUENZA A Final [NEGATIVE 07:04 EDT NEGATIVE 06/08/2024 INFLUENZA B Final [NEGATIVE 07:04 EDT INTERNAL 06/08/2024 PASS Final NEG QC 07:04 EDT INTERNAL 06/08/2024 PASS Final POS QC 07:04 EDT EXTERNAL QC 06/08/2024 YES Final DONE? 07:04 EDT 5 of 28 Narrative Lab Test Result Reference Status Received Comments A NEGATIVE TEST RESULT DOES NOT EXCLUDE INFECTION WITH INFLUENZA A OR B. THEREFORE, THE RESULTS OBTAINED FROM THIS FLU TEST SHOULD BE USED IN CONJUCTION WITH CLINICAL FINDINGS TO MAKE AN ACCURATE DIAGNOSIS. A POSITIVE RESULT DOES NOT RULE OUT CO-INFECTIONS WITH OTHER PATHOGENS OR IDENTIFY ANY SPECIFIC INFLUENZA A VIRUS 06/08/2024 SEND TO IC? (more content not included)... [facility] ED SUPER BILLon 06-12-2024 ED SUPER BILL [facility] [address] [place] [address] [id number] 06/08/2024 Patient: ALISIA MANDUJANO Sex: Female : 1950 Age: 74y Facility Professional Category Item Description Code Code Quantity Fee Total Drugs Normal Saline 909932 1 $0.00 $0.00 1000cc (731909) Nurse/E/M EMERGENCY 621349 1 $0.00 $0.00 DEPT VISIT HIGH SEVERITYFUNCJ (79209-20) Nurse/IV/IM/Infusions Hydration 338998 3 $0.00 $0.00 additional hour (46777) Nurse/IV/IM/Infusions IVP additional 064492 1 $0.00 $0.00 push (20916) Nurse/IV/IM/Infusions IVP initial (57965) 125273 1 $0.00 $0.00 Grand $0.00 Total Providers Marcial Leyva M.D. 1 of 2 [facility] Chief Complaint DIZZINESS. Principal Diagnosis Acute vertigo of peripheral origin: benign positional vertigo. BPPV. ICD-10 Codes H81.10: Benign paroxysmal vertigo, unspecified ear 2 of 2 [facility] ED VISIT SUMMARYon ED VISIT SUMMARY Visit Overview Visit Overview [address] [place] [address] [phone] 06/08/2024 Patient: ALISIA MANDUJANO Sex: Female : 1950 Age: 74y 06/12/2024 01:12 AM EDT ED Arrival:06:02 06/08/2024 EDT Status:not Recent Travel:no Language:eng Adv Directive:No Isolation Status: Ethnicity:N Fall Risk:risk Infectious Disease Exposure:no Measurements:5'10 / 177.8 Self-Harm Status:risk Sepsis Screen:negative cm 150.0 lb / 68.0 kg Chief Complaint:DIZZINESS, LIGHT HEADED, VERTIGO, WEAKNESS, (0500 this AM ), (Jason ( Brian)), and (Pt woke up with a feeling of the room dropping down. Pt did not attempt to stand up, denies CHANCE or vision changes. Pt did vomit X1 at home after EMS arrived. no diarrhea. No CP) ALLERGIES No Known Drug Allergies 1 of 3 Visit Overview HOME MEDICATIONS losartan 50 mg-hydrochlorothiazide 12.5 mg tablet: 1 tab once a day . Sutab 1.479-0.188-0.225 gram tablet: (Pt not taking at this time) PAST MEDICAL HISTORY / PROBLEMS Hypertension See nurses notes PAST SURGICAL HISTORY No Surgeries SOCIAL HISTORY Smoking status: No Alcohol use: No Drug use: No ED COURSE MEDICATIONS GIVEN IN EMERGENCY DEPARTMENT 06:35 06/08/24 IV NS 0.9 % 1000 mL 999 mL/hr over 1 hour(s) 06:36 06/08/24 Meclizine (Antivert) PO 25 mg 06:36 06/08/24 Ondansetron IVP 4 mg over 1 minute(s) 07:16 06/08/24 LORazepam (Ativan) IVP 1 mg 07:40 06/08/24 Meclizine (Antivert) PO 25 mg 09:04 06/08/24 Ear Wax Remover (Carbamide / Debrox) 5 drp IV SITE INFORMATION INTAKE OUTPUT REASSESMENT (most recent) 07:31 06/08/24. Reassessment after medication administered. Nausea still present but improving. Vomiting still present but improving. Overall patient status- the patient states feels better. 2 of 3 Visit Overview VITAL SIGNS First Vitals Last Vitals Temp 06:08 06/08/24 Temp 10:06/08/24 BP 06:08 06/08/24 BP 10:06/08/24 133/69 HR 06:08 06/08/24 72 HR 10:06/08/24 72 RR 06:08 06/08/24 RR 10:06/08/24 O2 Sat 06:08 06/08/24 96% O2 Sat 10:22 06/08/24 Pain 06:08 06/08/24 Pain 10:06/08/24 ETCO2 06:08 06/08/24 ETCO2 10:22 06/08/24 GCS 06:08 06/08/24 GCS 10:22 04/16/25 RTS 06:08 06/08/24 RTS 10:22 06/08/24 PROCEDURES NURSING INTERVENTIONS LABS / STUDIES LABS / STUDIES ORDERED CBC w Diff Chest 1V CMP CT Brain wo Cont EKG - ED Flu Swab (Influenzae AAg) Lactate, Serum Rapid COVID (SARS) ANTIGEN TEST Troponin-I TSH CLINICAL IMPRESSION ACUTE VERTIGO OF PERIPHERAL ORIGIN: BENIGN POSITIONAL VERTIGO 3 of 3 Normal [facility] ED VITALS FLOW SHEETon 06-12 ED VITALS FLOW SHEET Vitals Vital Sign Flow Sheet [facility] [address] [place] [address] [phone] 06/08/2024 Patient: ALISIA MANDUJANO Sex: Female : 1950 Age: 74y Measurements Wt: 68.0 kg, Ht/Jovany: 70.0 in, BMI: 21.52 Measured Time BP MAP HR RR O2Sat ETCO2 Temp Pain GCS RTS 10:22 06/08/2024 133/69 98 72 10:07 06/08/2024 126/93 104 66 09:52 06/08/2024 134/75 94 71 09:37 06/08/2024 130/77 94 70 09:22 06/08/2024 129/74 96 68 09:10 06/08/2024 123/85 98 83 09:09 06/08/2024 123/85 93 83 09:07 06/08/2024 122/80 103 73 09:07 06/08/2024 122/80 94 79 09:06 06/08/2024 121/73 96 74 09:06 06/08/2024 121/73 89 77 08:52 06/08/2024 135/78 97 75 08:45 06/08/2024 79 93% 08:40 06/08/2024 68 92% 08:37 06/08/2024 132/78 100 72 1 of 3 Vitals Measured Time BP MAP HR RR O2Sat ETCO2 Temp Pain GCS RTS 08:35 06/08/2024 73 94% 08:30 06/08/2024 70 93% 08:25 06/08/2024 71 92% 08:22 06/08/2024 128/79 95 68 08:20 06/08/2024 73 92% 08:15 06/08/2024 67 93% 08:10 06/08/2024 75 91% 08:07 06/08/2024 138/71 93 69 08:05 06/08/2024 71 93% 08:00 06/08/2024 71 94% 07:55 06/08/2024 71 93% 07:53 06/08/2024 139/82 101 71 07:50 06/08/2024 67 91% 07:45 06/08/2024 76 91% 07:40 06/08/2024 77 92% 07:37 06/08/2024 127/71 97 77 07:35 06/08/2024 78 92% 07:30 06/08/2024 77 93% 07:25 06/08/2024 73 91% 07:22 06/08/2024 137/77 105 65 07:20 06/08/2024 66 92% 07:18 06/08/2024 128/77 95 65 07:15 06/08/2024 65 96% 07:10 06/08/2024 69 97% 06:38 06/08/2024 134/70 115 66 2 of 3 Vitals Measured Time BP MAP HR RR O2Sat ETCO2 Temp Pain GCS RTS 06:38 06/08/2024 64 94% 06:33 06/08/2024 63 96% 06:28 06/08/2024 68 97% 06:23 06/08/2024 65 92% 06:23 06/08/2024 149/74 123 63 06:18 06/08/2024 67 95% 06:12 06/08/2024 148/74 99 72 16 96% RA 97.7 F 0 06:08 06/08/2024 148/74 118 67 06:08 06/08/2024 72 96% 3 of 3 Normal [facility] CBC + DIFFon 06-08-2024 Baso # 0.01 x10EE3/UL Normal 0.00 - 0.10 [facility] Comment on above: Performed By: #### 2 29696 #### [facility],[address] [place] [address] Basophils/100 WBC (Bld) 0.2 % Normal 0.0 - 2.0 [facility] Comment on above: Performed By: #### 2 74680 #### [facility],[address] [place] [address] CBC + DIFF Normal [facility] Comment on above: Result Comment: CBC- COMPLETE BLOOD COUNT Performed By: #### 2 39647 #### [place] [address] EO # 0.27 x10EE3/UL Normal 0.00 - 0.50 [facility] Comment on above: Performed By: #### 2 73621 #### [place] [address] Eosinophils/100 WBC (Bld) 5.6 % Normal 0.0 - 7.0 [facility] Comment on above: Performed By: #### 2 73377 #### [place] [address] Erythrocyte distribution width (RBC) [Ratio] 14.3 % Normal 12.0 - 15.6 [facility] Comment on above: Performed By: #### 2 35282 #### [place] [address] Hematocrit (Bld) [Volume fraction] 40.7 % Normal 34.0 - 46.0 [facility] Comment on above: Performed By: #### 2 87707 #### [place] [address] Hemoglobin (Bld) [Mass/Vol] 14.0 g/dL Normal 12.0 - 16.0 [facility] Comment on above: Performed By: #### 2 26976 #### [place] [address] Lymph # 1.82 x10EE3/UL Normal 0.80 - 2.80 [facility] Comment on above: Performed By: #### 2 34096 #### [facility],[address] [place] [address] Lymphocytes/100 WBC (Bld) 37.9 % Normal 20.0 - 45.0 [facility] Comment on above: Performed By: #### 2 75481 #### [facility],[address] [place] [address] MANUAL DIFF N/A Normal [facility] Comment on above: Performed By: #### 2 11413 #### [facility],[address] [place] [address] MCH (RBC) [Entitic mass] 30 pg Normal 27 - 33 [facility] Comment on above: Performed By: #### 2 89082 #### [place] [address] MCHC 34 X10 3 Normal 32 - 36 [facility] Comment on above: Performed By: #### 2 28119 #### [place] [address] MCV (RBC) [Entitic vol] 87 fL Normal 80 - 99 [facility] Comment on above: Performed By: #### 2 34245 #### [place] [address] Hutchinson # 0.36 x10EE3/UL Normal 0.20 - 1.00 [facility] Comment on above: Performed By: #### 2 31574 #### [place] [address] MONOS % 7.4 % Normal 0.0 - 10.0 [facility] Comment on above: Performed By: #### 2 98262 #### [place] [address] Morphology Reggie (Bld) [Interp] N/A Normal [facility] Comment on above: Performed By: #### 2 46524 #### [place] [address] Neut # 2.35 x10EE3/UL Normal 1.50 - 7.10 [facility] Comment on above: Performed By: #### 2 45496 #### [facility],[address] [place] [address] Neutrophils/100 WBC (Bld) 48.9 % Normal 46.0 - 76.0 [facility] Comment on above: Performed By: #### 2 90445 #### [facility],[address] [place] [address] 22925 PLATELET 228 x10EE3/UL Normal 150 - 450 [facility] Comment on above: Performed By: #### 2 14542 #### [facility],[address] [place] [address] 75085 Platelet mean volume (Bld) [Entitic vol] 8.2 fL Normal 6.6 - 10.5 [facility] Comment on above: Result Comment: AUTO MATED DIFFERENTIAL Performed By: #### 2 63824 #### [facility],[address] [place] [address] 97033 RBC 4.67 x 10EE6/UL Normal 4.10 - 5.30 [facility] Comment on above: Performed By: #### 2 37627 #### [facility],[address] [place] [address] 41102 WBC 4.8 x 10EE3/UL Normal 4.5 - 10.8 [facility] Comment on above: Performed By: #### 2 86449 #### [facility],[address] [place] [address] 79595 CHEST 1 VIEWon 06-08-2024 CHEST 1 VIEW [place] [address] Patient: ALISIA MANDUJANO Phone#: : 1950 Age: 74 Gender: F Pt. Type: ER Account: [id number] Location: 2 Ordering: IDRIS HORNER Exam Date: 06/08/2024/7:06 Family Phys: JENNIFER KNOX Charge Code: 032197 Physician: Laclede Order #: [id number] Dose#: PROCEDURE: X-RAY CHEST 1 VIEW COMPARISON: None. INDICATIONS: Pneumonia. FINDINGS: LUNGS: Normal. No significant pulmonary parenchymal abnormalities. VASCULATURE: Normal. Unremarkable pulmonary vasculature. CARDIAC: Normal. No cardiac silhouette abnormality or cardiomegaly. MEDIASTINUM: Normal. No visible mass or adenopathy. PLEURA: Normal. No effusion or pleural thickening. BONES: Normal. No fracture or visible bony lesion. OTHER: Negative. CONCLUSION: No acute disease. Dictated by: Noy Jacobs MD on 06/08/2024 at 8:08 Approved by: Noy Jacobs MD on 06/08/2024 at 8:10 Normal [facility] CMP with eGFRon 06-08-2024 AGE 74 years Normal [facility] Comment on above: Performed By: #### 2 99427 #### [place] [id number] Albumin [Mass/Vol] 3.4 g/dL Normal 3.4 - 5.0 [facility] Comment on above: Performed By: #### 2 41445 #### [address] [address] Albumin/Globulin [Mass ratio] 0.9 {ratio} Normal 0.9 - 1.6 [facility] Comment on above: Performed By: #### 2 36492 #### [facility],[address] [place] [address] 14111 ALK PHOS 63 U/L Normal 46 - 116 [facility] Comment on above: Performed By: #### 2 39660 #### [address] [address] ALT [Catalytic activity/Vol] 24 U/L Normal 16 - 63 [facility] Comment on above: Performed By: #### 2 66660 #### [address] [address] Anion gap [Moles/Vol] 14 mmol/L Normal 10 - 20 [facility] Comment on above: Performed By: #### 2 55446 #### [facility],[address] [place] [address] 48961 AST [Catalytic activity/Vol] 15 U/L Normal 13 - 39 [facility] Comment on above: Performed By: #### 2 43135 #### [facility],[address] [place] [address] 26053 B/C RATIO 29 ratio Normal 0 - 30 [facility] Comment on above: Performed By: #### 2 70325 #### [facility],[address] [place] [address] 26371 Bilirubin [Mass/Vol] 0.5 mg/dL Normal 0.2 - 1.0 [facility] Comment on above: Performed By: #### 2 25154 #### [facility],[address] [place] [address] 66967 Calcium [Mass/Vol] 9.1 mg/dL Normal 8.5 - 10.1 [facility] Comment on above: Performed By: #### 2 11764 #### [facility],[address] [place] [address] 56772 Chloride [Moles/Vol] 108 mmol/L High 98 - 107 [facility] Comment on above: Performed By: #### 2 71194 #### [facility],[address] [place] [address] 57175 CMP with eGFR Normal [facility] Comment on above: Result Comment: COMP REHENSIVE METABOLIC PANEL Performed By: #### 2 30690 #### [facility],[address] [place] [address] 21808 CO2 [Moles/Vol] 22.7 mmol/L Normal 21.0 - 32.0 [facility] Comment on above: Performed By: #### 2 43163 #### [facility],[address] [place] [address]57 Creatinine [Mass/Vol] 0.90 mg/dL Normal 0.55 - 1.02 [facility] Comment on above: Performed By: #### 2 83960 #### [facility],[address] [place], [place] [id number] GFR/1.73 sq M.predicted among non-blacks MDRD (S/P/Bld) [Vol rate/Area] mL/min/{1.73_m2} Normal 60 - 999 [facility] Comment on above: Performed By: #### 2 62788 #### [facility],[address] [place] [address] Result Comment: ACCO RDING TO THE NATIONAL KIDNEY DISEASE EDUCATION PROGRAM(NKDE), A NORMAL eGFR IS A VALUE GREATER THAN OR EQUAL TO 60 ML/MIN/1.73 SQ METERS. CHRONIC KIDNEY DISEASE: <60mL/MIN/1.73 SQ METERS KIDNEY FAILURE: <15mL/MIN/1.73 SQ METERS THIS TEST SHOULD ONLY BE USED FOR PATIENTS 18 YEARS OF AGE AND OLDER. Globulin (S) [Mass/Vol] 3.6 g/dL Normal 1.5 - 3.8 [facility] Comment on above: Performed By: #### 2 81569 #### [facility],[address] [place], [place] [id number] Glucose [Mass/Vol] 129 mg/dL High 74 - 106 [facility] Comment on above: Performed By: #### 2 03728 #### [facility],[address] [place], [place] [id number] Potassium [Moles/Vol] 3.6 mmol/L Normal 3.5 - 5.1 [facility] Comment on above: Performed By: #### 2 76309 #### [facility],[address] [place], [place] [id number] Protein [Mass/Vol] 7.0 g/dL Normal 6.4 - 8.2 [facility] Comment on above: Performed By: #### 2 85023 #### [facility],[address] [place] [address] Sodium [Moles/Vol] 141 mmol/L Normal 136 - 145 [facility] Comment on above: Performed By: #### 2 81991 #### [facility],[address] [place], [place] [id number] Urea nitrogen [Mass/Vol] 26 mg/dL High 7 - 18 [facility] Comment on above: Performed By: #### 2 64736 #### [facility],[address] [place], [place] [id number] CORONAVIRUS (SARS) ANTIGEN T ESTon 06-08-2024 EXTERNAL QC DONE? YES Normal [facility] Comment on above: Performed By: #### 2 30391 #### [facility],[address] [place] [address] INTERNAL CONTROL PASS Normal [facility] Comment on above: Performed By: #### 2 34247 #### [facility],[address] [place] [address] SARS ANTIGEN Negative Normal NORMAL: NEGATIVE [facility] Comment on above: Performed By: #### 2 97168 #### [facility],[address] [place] [address] SEND TO ? NO Normal [facility] Comment on above: Result Comment: SARS -CoV-2 THIS TEST IS BEING USED UNDER THE FDA EUA PROCEDURE. THIS ASSAY HAS BEEN VALIDATED AT [facility] FOR USE WITH NASAL AND NASOPHARYNGEAL SWAB SPECIMENS. INTERPRETIVE DATA TEST RESULTS SHOULD ALWAYS BE CONSIDERED IN THE CONTEXT OF CLINICAL OBSERVATIONS AND EPIDEMIOLOGICAL DATA IN MAKING FINAL DIAGNOSIS AND PATIENT MANAGEMENT DECISIONS. PATIENT MANAGEMENT SHOULD FOLLOW CURRENT CDC GUIDELINES. THE [place]ANK[place] SARS ANTIGEN JEAN CLAUDE DOES NOT DIFFERENTIATE BETWEEN SARS-CoV & SARS-CoV-2. A POSITIVE TEST RESULT INDICATES THE PRESENCE OF SARS-CoV-2 NUCLEOCAPSID PROTEIN ANTIGEN, AND THE PATIENT IS INFECTED WITH THE VIRUS AND PRESUMED TO BE CONTAGIOUS. A NEGATIVE TEST RESULT FOR THIS TEST MEANS THAT SARS-CoV-2 NUCLEOCAPSID PROTEIN ANTIGEN WAS NOT PRESENT IN THE SPECIMEN ABOVE THE LIMIT OF DETECTION. HOWEVER, A NEGATIVE RESULT DOES NOT RULE OUT COVID-19 AND SHOULD NOT BE USED THE SOLE BASIS FOR TREATMENT OR PATIENT MANAGEMENT DECISIONS. A NEGATIVE RESULT DOES NOT EXCLUDE THE POSSIBILITY OF COVID-19. NEGATIVE RESULTS, FROM PATIENTS WITH SYMPTOM ONSET BEYOND FIVE DAYS, SHOULD BE TREATED PRESUMPTIVE AND CONFIRMATION WITH A MOLECULAR ASSAY, IF NECESSARY, FOR PATIENT MANAGEMENT, MAY BE PERFORMED. WHEN DIAGNOSTIC TESTING IS NEGATIVE, THE POSSIBLILTY OF A FALSE NEGATIVE RESULT SHOULD BE CONSIDERED IN THE CONTEXT OF A PATIENT'S RECENT EXPOSURES AND THE PRESENCE OF CLINICAL SIGNS AND SYMPTOMS CONSISTENT WITH COVID-19. THE POSSIBILITY OF A FALSE NEGATIVE RESULT SHOULD ESPECIALLY BE CONSIDERED IF THE PATIENT'S RECENT EXPOSURES OR CLINICAL PRESENTATION INDICATE THAT COVID-19 IS LIKELY, AND DIAGNOSTIC TESTS FOR OTHER CAUSES OF ILLNESS (e.g., OTHER RESPIRATORY ILLNESS) ARE NEGATIVE. IF COVID-19 IS STILL SUSPECTED BASED ON EXPOSURE HISTORY TOGETHER WITH OTHER CLINICAL FINDINGS, RE-TESTING SHOULD BE CONSIDERED BY HEALTHCARE PROVIDERS IN CONSULTATION WITH PUBLIC HEALTH AUTHORITIES. Performed By: #### 2 71409 #### [place] [address] CT BRAIN W/O CONTRASTon 05-24 CT BRAIN W/O CONTRAST [place] [address] Patient: ALISIA MANDUJANO Phone#: : 1950 Age: 74 Gender: F Pt. Type: ER Account: [id number] Location: [facility] Ordering: IDRIS HORNER Exam Date: 06/08/2024/6:55 Family Phys: JENNIFER KNOX Charge Code: [id number] Physician: Laclede Order #: [id number] Dose#: 52.3 PROCEDURE: CT BRAIN WITHOUT CONTRAST COMPARISON: None. INDICATIONS: Dizziness. TECHNIQUE: CT images were obtained without contrast material. All CT scans at this facility use dose modulation, iterative reconstruction, and/or weight based dosing when appropriate to reduce radiation dose to as low as reasonably achievable. IV CONTRAST: No IV contrast used,0ml TOTAL DOSE: 52.30 CTDIvol(mGy) FINDINGS: Artifact from material external to the patient's head somewhat limits the evaluation. CEREBRUM: No edema, hemorrhage, mass. Mild global atrophy. Patchy deep cerebral white matter hypodensities, in a patient this age group most consistent with small vessel ischemic disease. CEREBELLUM: No edema, hemorrhage, mass. Mild global atrophy. BRAINSTEM: No edema, hemorrhage, mass, or inappropriate atrophy. CSF SPACES: Ventricles, cisterns, and sulci are appropriate for age. No hydrocephalus, subarachnoid hemorrhage, or mass. SKULL: No mass or other significant visible lesion. SINUSES: Maxillary sinus mucosal thickening. Frothy secretions in the right maxillary sinus. Air- fluid level in left maxillary sinus. Opacification of several ethmoid air cells. Mucosal thickening in the frontal sinuses. ORBITS: Limited views are unremarkable. OTHER: Atherosclerotic calcifications of the cavernous carotid arteries. Degenerative changes of the right TMJ. CONCLUSION: 1. No appreciable acute intracranial abnormality. Note: An acute ischemic event may not be initially evident on CT. 2. Sinusitis This report was communicated by telephone to Dr. Case at the dictation time shown below. Continued Report - Page 2 of 2 Patient: ALISIA MANDUJANO Phone#: : 1950 Age: 74 Gender: F Pt. Type: ER Account: [id number] Location: 052 Ordering: IDRIS HORNER Exam Date: 06/08/2024/6:55 Family Phys: JENNIFER KNOX Charge Code: [id number] Physician: Laclede Order #: [id number] Dose#: 52.3 3. Global atrophy and atherosclerosis 4. Small vessel ischemic disease Dictated by: Noy Jacobs MD on 06/08/2024 at 12:15 Approved by: Noy Jacobs MD on 06/08/2024 at 12:22 Normal [facility] INFLUENZA VIRUS RAPID A/Bon 06-08-2024 INFLUENZA VIRUS RAPID A/B INFLUENZA A NEGATIVE INFLUENZA B NEGATIVE INTERNAL NEG QC PASS INTERNAL POS QC PASS EXTERNAL QC DONE? YES SEND TO IC? NO A NEGATIVE TEST RESULT DOES NOT EXCLUDE INFECTION WITH INFLUENZA A OR B. THEREFORE, THE RESULTS OBTAINED FROM THIS FLU TEST SHOULD BE USED IN CONJUCTION WITH CLINICAL FINDINGS TO MAKE AN ACCURATE DIAGNOSIS. A POSITIVE RESULT DOES NOT RULE OUT CO-INFECTIONS WITH OTHER PATHOGENS OR IDENTIFY ANY SPECIFIC INFLUENZA A VIRUS SUBTYPE.CO-INFECTION WITH INFLUENZA A AND B IS RARE. IT IS RECOMMENDED THAT DUAL POSITIVE RESULTS BE CONFIRMED BY VIRAL CULTURE OR AN FDA-CLEARED INFLUENZA A AND B MOLECULAR ASSAY. INDIVIDUALS WHO HAVE RECEIVED NASALLY ADMINISTERED INFLUENZA A VACCINE MAY TEST POSITIVE IN COMMERCIALLY AVAILABLE INFLUENZA RAPID DIAGNOSTIC TESTS FOR UP TO THREE DAYS. RESULT CRITICAL? NO Normal [facility] Comment on above: Performed By: #### 2 29530 ####[facility],[address] [place] [address] LACTATEon 06-08-2024 Lactate [Moles/Vol] 0.9 mmol/L Normal 0.4 - 2.0 [facility] Comment on above: Performed By: #### 2 11845 #### [facility],[address] [place] [address] TROPONINon 06-08-2024 HS TROPONIN 5.5 pg/mL Normal 0.0 - 51.4 [facility] Comment on above: Performed By: #### 2 92012 ####[facility],[address] [place] [address] TSHon 06-08-2024 TSH Qn 8.40 m[IU]/L High 0.35 - 3.74 [facility] Comment on above: Performed By: #### 2 73066 #### [facility],[address] [place], [place] [id number] Dexa Bone Density Studyon Dexa Bone Density Study [facility] Services [address] [place], [place] [id number] Dexa Bone Density Study MR#: [id number] Acct: [id number] Name: ALISIA MANDUJANO Rep #: [id number] : 1950 F 73 From: Roshan burns MD PCP: ALEKSANDAR Morrow Status: ZHEN Sherron Study: Dexa Bone Density Study Date of Exam: 10/27/23 Exam# [id number] Ordering Dr: Jennifer KnoxC [id number] STUDY: DUAL ENERGY X-RAY ABSORPTIOMETRY / DXA REASON FOR EXAM: Female, 73 years old. [id number] TECHNIQUE: Bone Mineral Density (BMD) measurements of lumbar spine and bilateral hips were obtained. COMPARISON: None. FINDINGS: Lumbar Spine (L1-L4): g/cm2 (0.971) / T-score (-0.4) / Z-score (1.8) Findings are suggestive of normal bone density with a low fracture risk. Left Femur Total: g/cm2 (0.875) / T-score (-0.6) / Z-score (1.2) Left Femoral Neck: g/cm2 (0.696) / T-score (-1.4) / Z-score (0.6) Right Femur Total: g/cm2 (0.891) / T-score (-0.4) / Z-score (1.3) Right Femoral Neck: g/cm2 (0.783) / T-score (-0.6) / Z-score (1.4) BD/Dexa Bone Density Study IMPRESSION: The patient is considered osteopenic as outlined below according to World [place] C Organization (WHO) criteria with a low fracture risk. Reference Information: The T-score is the number of standard deviations above or below the standard which is normal for young adults at their peak bone mineral density. The World Health Organization (WHO) interprets the T-scores as follows: Above -1 Normal bone density Between -1 and -2.5 Osteopenia Equal to / or below -2.5 Osteoporosis As a practical clinical guideline, osteopenia may be graded as follows: Mild -1 through -1.5 Moderate -1.6 through -2.0 Severe -2.1 through -2.4 The Z-score is the number of standard deviations above or below age-matched controls. A Z-score of less than -1.5 would be considered abnormal. References: 1. NIH Osteoporosis and Related Bone Diseases www osteo.org 2. International Society for Clinical Densitometry www iscd.org 3. National Osteoporosis Foundation www nof.org Electronically Signed: Roshan Hobson MD at 13:38 EDT , CC: ALEKSANDAR Knox Lace Burn Out Tender: Signed Normal [facility] SCRN MAMM (CAD)W/CASPER BILATo n 10-27-2023 SCRN MAMM (CAD)W/CASPER BILAT [facility] Imaging Services [address] [place], [place] [address] SCRN MAMM (CAD)W/CASPER BILAT MR#: [id number] Acct: [id number] Name: ALISIA MANDUJANO Rep #: [id number] : 1950 F 73 From: Roshan burns MD PCP: ALEKSANDAR Morrow Status: [facility] Study: SCRN MAMM (CAD)W/CASPER BILAT Date of Exam: 05/16 Exam# [id number] Ordering Dr: Jennifer Knox [id number] MAMMOGRAPHY - BILATERAL SCREENING REASON FOR EXAM: Female, 73 years old. Routine annual screening examination. PERTINENT HISTORY: Sister with breast cancer. TECHNIQUE: Digital bilateral breast casper (3D mammographic acquisition) in the CC and MLO projections. 2-D mediolateral oblique (MLO) and craniocaudad (CC) views of both breasts were obtained. CAD: Full Field Digital Mammography with Computer Added Detection was performed. COMPARISON: None. Baseline examination. FINDINGS: Breast Composition: The breasts are almost entirely fatty. There are no dominant masses or suspicious calcifications. No other significant abnormalities are identified. There has been no significant change since the prior study. BI/SCRN MAMM (CAD)W/CASPER BILAT IMPRESSION: Stable bilateral screening mammogram. Yearly follow-up mammogram recommended. (A) ASSESSMENT CATEGORY: BIRADS Category 1: Negative. A letter regarding these results will be sent to the patient by the facility within 30 days. Approximately 10% of breast cancers are not detected by mammography. A normal mammogram should not delay biopsy of a clinically suspicious abnormality. [id number] Electronically Signed: Roshan Hobson MD at 15:10 EDT Reading Location ID and State: [address] [place] [address] , Service support , CC: ALEKSANDAR Knox Lace Burn Out Tender: Signed Normal [facility] Encounters Encounter Date Encounter Type Care Provider Facility Start: 06-28-2024 End: 06-28-2024 ambulatory Jennifer HUERTAS Work Phone: [facility] Work Phone: Start: 06-28-2024 End: 06-28-2024 Patient encounter procedure Jennifer HUERTAS -Cardiovascular Services Work Phone: Start: 06-28-2024 End: 06-28-2024 ambulatory Jennifer Knox Facility:[facility] Start: 06-08-2024 End: 06-08-2024 Emergency department patient visit JENNIFER KNOX [facility] Start: 10-27-2023 End: 10-27-2023 ambulatory Jennifer Knox Facility:[facility] Payers Date Payer Category Payer Medicare [id number] 2023 Self-pay 1950 Unknown [id number] Unknown [id number] Unknown [id number] [id number] [id number] Social History Date Type [facility]ail [facility] Work Phone: Start: 1950 Sex Assigned At Female [address] [place] [facility] Evaluation note Note Date & Type Note Facility Evaluation note No assessment information availa ble [facility] Work Phone: Reason for referral (narrative) Note Date & Type Note Facility Reason for referral (narrative) No reason for referral information available [facility] Work Phone: Summary Purpose Family History No Family History Records FoundNo Family History Records Found Advance Directives No Advanced Directives Records FoundNo Advanced Directives Records Found Chief Complaint and Reason for Visit Chief Complaint Admit Date CAROTID ARTERY STENOSIS June 28, 2024 9: 40am Additional Source Comments INFORMATION SOURCE (unrecogn ized section and content) DATE CREATED AUTHOR 06/13/2024 [facility] DATE CREATED AUTHOR AUTHOR'S ORGANIZ ATION 07/04/2024 [facility] Care Teams (unrecognized sec tion and content) Team Status: Active Member Role Status Dates ALEKSANDAR Morrow Primary Care Provider Active Team Status: Inactive Member Role Status Dates ALEKSANDAR Morrow Primary Care Provider Active Start: June 28, 2024 End: June 28, 2024 ALEKSANDAR Morrow Attending Provider Active Start: June 28, 2024 End: June 28, 2024 ALEKSANDAR Morrow Referring Provider Active Start: June 28, 2024 End: June 28, 2024 Goals (unrecognized section and content) Goals may be documented in a n alternate section FOR RECORDS PERTAINING TO PATIENTS WHO ARE OR HAVE BEEN ENROLLED IN A CHEMICAL DEPENDENCY/SUBSTANCEABUSE PROGRAM, SOME INFORMATION MAY BE OMITTED. This clinical summary was aggregated from multiple sources. Caution should be exercised in using it in the provision of clinical care. This summary normalizes information from multiple sources, and as a consequence, information in this document may materially change the coding, format and clinical context of patient data. In addition, data may be omitted in some cases. CLINICAL DECISIONS SHOULD BE BASED ON THE PRIMARY CLINICAL RECORDS. [facility] provides no warranty or guarantee of the accuracy or completeness of information in this document.
[2024-08-20 20:52] LABS: Absolute Lymphocyte Count 1.81 X10^3/uL (0.83-4.51); Absolute Neutrophil Count 5.1 X10^3/uL (2.0-7.7); Basophil# 0.05 X10^3/uL; Basophil% 0.6 % (0-1); Eosinophil# 0.31 X10^3/uL; Eosinophils% 3.9 % (0-5); Hematocrit 40.2 % (37-47); Hemoglobin 13.8 g/dL (12.0-15.0); Lymphocyte # 1.81 X10^3/ul (0.83-4.51); Lymphocyte % 22.7 % (19-41); Mean Corp Hgb Conc 34.3 g/dL (32-36); Mean Corpuscular Hgb 30.4 pg (27.0-32.0); Mean Corpuscular Volume 88.5 fL (81-99); Mean Platelet Vol. 11.9 fl (6.2-12.0); Monocyte# 0.71 X10^3/uL; Monocyte% 8.9 % (0-10); NRBC Flagged by Analyzer 0 % (0-5); Neutrophil # 5.09 X10^3/uL (2.7-7.7); Neutrophil % 63.6 % (47-70); Platelet Count 242 K/mm3 (150-450); RBC Distribution Width CV 14.5 % (11.6-14.6); RBC Distribution Width SD 46.9 fl (35.1-43.9); Red Blood Count 4.54 M/mm3 (4.2-5.4)
[2024-08-20] MEDS: Ceftriaxone 1 GM/50 ML BAG IV (21:07)
[2024-08-20 21:22] LABS: Lactic Acid 1.6 mmol/L (0.0-2.0)
[2024-08-20 21:23] LABS: ALB/GLOB Ratio 1.2 RATIO (0.9-2.4); AST(SGOT) 16 U/L (<=31); Alanine Aminotransfer ALT/SGPT 9 U/L (<=34); Albumin, Serum 3.8 g/dL (3.4-4.8); Alkaline Phosphatase 68 U/L (35-104); Anion Gap 12 (5-15); BUN 17 mg/dL (4-19); BUN/Creat Ratio 16.1 RATIO (10-20); Calcium,Total 9.4 mg/dL (7.6-11.0); Carbon Dioxide 24.6 mmol/L (21.0-32.0); Chloride 103 mmol/L (98-108); Creatinine, Serum 1.08 mg/dL (0.70-1.20); EST Glomerular Filtration Rate 54 (>60); Estimated Creatinine Clearance 38.54 ml/min (50-250); Globulin 3.3 g/dL (2.2-4.2); Glucose 112 mg/dL (70-99); Protein, Total 7.1 g/dL (5.9-8.4); Sodium Level 140 mmol/L (133-145); Total Bilirubin 0.25 mg/dL (0.00-1.30)
[2024-08-20 21:54] VITALS: BP 116/65; PULSE 76; RESP 16; TEMP 36.6; O2SAT 94
== END 2024-08-20 21:54 | disposition home or self-care (01) ==
PROVIDERS: Emergency Provider Emergency Medicine; PCP Nurse Practitioner Family; Referring Provider Emergency Medicine; Visit Provider Emergency Medicine
DX: L03.115 Cellulitis of right lower limb (principal)
CPT/HCPCS: 73564; 80053; 83605; 85025; 96361; 96365; 99283; A4216

== ENCOUNTER → 2024-11-14 | Outpatient (CLI) | payer MEDICARE, SELFPAY ==
--- NOTE | 2024-11-14 12:30 | BI_ITS ---
EXAM: SCRN MAMM (CAD)W/CASPER BILAT DATE: 11/14/2024 CLINICAL HISTORY: F, Age 74 y/o , SCREENING Sister with breast cancer. TECHNIQUE: Procedure Code: [id number] Modality: MG Procedure: SCRN MAMM (CAD)W/CASPER BILAT COMPARISON: Prior exam(s) dated prior study dated October 27, 2023.. FINDINGS: TISSUE DENSITY: The breasts are almost entirely fatty. Bilateral Breast Mammographic Findings: No significant masses, calcifications or other abnormalities are identified. No suspicious masses, areas of developing architectural distortion, or suspicious calcifications. There has been no significant interval change. BI/SCRN MAMM (CAD)W/CASPER BILAT IMPRESSION: Stable bilateral screening mammogram. OVERALL FINAL ASSESSMENT BI-RADS 1: NEGATIVE. RECOMMENDATION: Routine annual follow-up in 1 Year Additional Recommendation none A letter with findings and recommendations will be mailed to the patient. Reading Location: [place] [id number]
--- OUTSIDE RECORDS SUMMARY | 2024-11-14 13:29 | XMS RPT_ITS | CCD ---
Author Organization [facility] CliniSymd Care Team Providers Care Sales Order Coordinator Name Role Phone JENNIFER KNOX Consulting Unavailable IDRIS HORNER DO Attending Unavailable IDRIS HORNER DO Primary Care Unavailable IDRIS HORNER DO Admitting Unavailable JENNIFER KNOX Referring Unavailable PROVIDER, UNKNOWN Consulting Unavailable Jason REAL ESTATE SALES ASSOCIATE-CJennifer Primary Care Provider [phone] Jason REAL ESTATE SALES ASSOCIATE-C, Jennifer Attending Provider [phone] Jason REAL ESTATE SALES ASSOCIATE-CJennifer Referring Provider [phone] Norman SHINE, Dr. Lucio Page Attending Provider [phone] Dr. Lalo Honeycutt DO Referring Provider Dr. Lalo Honeycutt DO Emergency Provider Jennifer Knox Primary Care Unavailable Jennifer Knox Attending Unavailable Jennifer Knox Referring Unavailable Jennifer Knox Primary Care Unavailable Lalo Honeycutt Attending Unavailable Lalo Honeycutt Referring Unavailable Jennifer Knox Attending Unavailable Jennifer Knox Referring Unavailable Jennifer Knox Primary Care Unavailable Medications Current Medications Medication Drug Class(es) Dates Sig (Normalized) Sig (Original) doxycycline hyclate 100 mg oral capsule (1 source) Tetracycline-clas s Drug Start: 08-20-2024 take 1 capsule by mouth twice daily Doxycycline Hyclate 100 mg capsule Active 100 mg PO TWICE A DAY 14 7 0 August 20, 2024 12:00am hydroCHLOROthiazide 12.5 mg / losartan potassium 50 mg oral tablet (1 source) Thiazide Diuretic, Angiotensin 2 Receptor Nagelica Start: 08-20-2024 Losartan-Hydroch lorothiazide 50-12.5 mg tablet Active 1 {tbl} PO DAILY August 20, 2024 12:00am Problems Problem Classification Problem Date Documented Da te Episodic/Chronic Occlusion or stenosis of precerebral arteries (1 source) Occlusion and stenosis of bilateral carotid arteries; Translations: [Occlusion and stenosis of bilateral carotid arteries] Onset: 07-03-2024 Chronic Other screening for suspected conditions (not mental disorders or infectious disease) (2 sources) Encounter for screening mammogram for malignant neoplasm of breast; Translations: [Encounter for other screening for malignant neoplasm of breast] Onset: 11-10-2024 Episodic Other skin disorders (1 source) Eruption; Translations: [Rash and other nonspecific skin eruption] 08-20-2024 Episodic Other skin disorders (1 source) Rash and other nonspecific skin eruption; Translations: [Rash and other nonspecific skin eruption] Onset: 08-24-2024 Episodic Skin and subcutaneous tissue infections (1 source) Cellulitis; Translations: [Cellulitis, unspecified] 08-20-2024 Episodic Results Test Name Value Interpretation Reference Range Facility Absolute lymphocyte countOrd ered By: Lalo Honeycutt on 08-20-2024 Lymphocytes Auto (Unsp spec) [#/Vol] 1.81 10*3/uL 0.83-4.51 [facility] Absolute neutrophil countOrd ered By: Lalo Honeycutt on 08-20-2024 Neutrophils (Bld) [#/Vol] 5.1 10*3/uL 2.0-7.7 [facility] Anion gap in Serum or Plasma Ordered By: Lalo Honeycutt on 08-20-2024 Anion gap [Moles/Vol] 12 mmol/L 5-15 [facility] Automated lymphocyte count a s percentage of total leukocytesOrdered By: Lalo Honeycutt on 08-20-2024 Lymphocytes/100 WBC Auto (Unsp spec) 22.7 % 19-41 [facility] BUN/creatinine ratioOrdered By: Lalo Honeycutt on 08-20-2024 Urea nitrogen/Creatinine [Mass ratio] 16.1 mg/mg 10-20 [facility] Basophil percentageOrdered B y: Lalo Honeycutt on 08-20-2024 Basophils/100 WBC (Bld) 0.6 % 0-1 [facility] Bilirubin, totalOrdered By: Lalo Honeycutt on 08-20-2024 Bilirubin [Mass/Vol] 0.25 mg/dL 0.00-1.30 [facility] CBC W/Diff, Automatedon 07-25 Absolute Lymph 1.81 X10 3/uL Normal 0.83-4.51 [facility] Comment on above: Performed By: #### L 503.6005, L500.4050, L100.0100 #### [facility] [address] [place], [address] Absolute Neut 5.1 X10 3/uL Normal 2.0-7.7 [facility] Comment on above: Performed By: #### L 503.6005, L500.4050, L100.0100 #### [facility] [address] [place], [address] Basophils/100 WBC (Bld) 0.6 % Normal 0-1 [facility] Comment on above: Performed By: #### L 503.6005, L500.4050, L100.0100 #### [facility] [address] [place], [address] Eosinophils/100 WBC (Bld) 3.9 % Normal 0-5 [facility] Comment on above: Performed By: #### L 503.6005, L500.4050, L100.0100 #### [facility] [address] [place], [address] Erythrocyte distribution width (RBC) [Ratio] 14.5 % Normal 11.6-14.6 [facility] Comment on above: Performed By: #### L 503.6005, L500.4050, L100.0100 #### [facility] [address] [place], [address] Hematocrit (Bld) [Volume fraction] 40.2 % Normal 37-47 [facility] Comment on above: Performed By: #### L 503.6005, L500.4050, L100.0100 #### [facility] [address] [place], [address] Hemoglobin (Bld) [Mass/Vol] 13.8 g/dL Normal 12.0-15.0 [facility] Comment on above: Performed By: #### L 503.6005, L500.4050, L100.0100 #### [facility] [address] [place], [address] IG% 0.300 Normal 0.0-0.9 [facility] Comment on above: Result Comment: IG% - Immature Granulocytes (promyelocytes, myelocytes and metamyelocytes) > 1% indicates that a LEFT SHIFT is Present. Performed By: #### L 503.6005, L500.4050, L100.0100 #### [facility] [address] [place], [address] Lymphocytes/100 WBC (Bld) 22.7 % Normal 19-41 [facility] Comment on above: Performed By: #### L 503.6005, L500.4050, L100.0100 #### [facility] [address] [place], [address] MCH (RBC) [Entitic mass] 30.4 pg Normal 27.0-32.0 [facility] Comment on above: Performed By: #### L 503.6005, L500.4050, L100.0100 #### [facility] [address] [place], [address] MCHC (RBC) [Mass/Vol] 34.3 g/dL Normal 32-36 [facility] Comment on above: Performed By: #### L 503.6005, L500.4050, L100.0100 #### [facility] [address] [place], [address] MCV (RBC) [Entitic vol] 88.5 fL Normal 81-99 [facility] Comment on above: Performed By: #### L 503.6005, L500.4050, L100.0100 #### [facility] [address] [place], [address] Monocytes/100 WBC (Bld) 8.9 % Normal 0-10 [facility] Comment on above: Performed By: #### L 503.6005, L500.4050, L100.0100 #### [facility] [address] [place], [address] Neutrophils/100 WBC (Bld) 63.6 % Normal 47-70 [facility] Comment on above: Performed By: #### L 503.6005, L500.4050, L100.0100 #### [facility] [address] [place], [address] Nucleated RBC (Bld) [#/Vol] 0 10*3/uL Normal 0-5 [facility] Comment on above: Performed By: #### L 503.6005, L500.4050, L100.0100 #### [facility] [address] [place], [address] Platelet mean volume (Bld) [Entitic vol] 11.9 fL Normal 6.2-12.0 [facility] Comment on above: Performed By: #### L 503.6005, L500.4050, L100.0100 #### [facility] [address] [place], [address] Platelets (Bld) [#/Vol] 242 10*3/uL Normal 150-450 [facility] Comment on above: Performed By: #### L 503.6005, L500.4050, L100.0100 #### [facility] [address] [place], [address] RBC (Bld) [#/Vol] 4.54 10*6/uL Normal 4.2-5.4 [facility] Comment on above: Performed By: #### L 503.6005, L500.4050, L100.0100 #### [facility] [address] [place], [address] RDW SD 46.9 fl High 35.1-43.9 [facility] Comment on above: Performed By: #### L 503.6005, L500.4050, L100.0100 #### [facility] [address] [place], [address] WBC (Bld) [#/Vol] 8.0 10*3/uL Normal 4.4-11.0 [place] Comment on above: Performed By: #### L 503.6005, L500.4050, L100.0100 #### [facility] [address] [place], [address] Carbon dioxide, total [Moles /volume] in Central venous bloodOrdered By: Lalo Honeycutt on 08-20-2024 CO2 [Moles/Vol] 24.6 mmol/L 21.0-32.0 [facility] Chloride assayOrdered By: Lalit Honeycutt on 08-20-2024 Chloride [Moles/Vol] 103 mmol/L 98-108 [facility] Comprehensive Metabolic Prof ilon 08-20-2024 Albumin [Mass/Vol] 3.8 g/dL Normal 3.4-4.8 [place] Comment on above: Performed By: #### L 503.6005, L500.4050, L100.0100 #### [facility] [address] [place], [address] Albumin/Globulin [Mass ratio] 1.2 {ratio} Normal 0.9-2.4 [facility] Comment on above: Performed By: #### L 503.6005, L500.4050, L100.0100 #### [facility] [address] [place], [address] ALK PHOS 68 U/L Normal 35-104 [facility] Comment on above: Performed By: #### L 503.6005, L500.4050, L100.0100 #### [facility] [address] [place], [address] ALT [Catalytic activity/Vol] 9 U/L Normal <=34 [facility] Comment on above: Performed By: #### L 503.6005, L500.4050, L100.0100 #### [facility] [address] [place], [address] AST [Catalytic activity/Vol] 16 U/L Normal <=31 [facility] Comment on above: Performed By: #### L 503.6005, L500.4050, L100.0100 #### [facility] [address] [place], [address] Bilirubin [Mass/Vol] 0.25 mg/dL Normal 0.00-1.30 [facility] Comment on above: Performed By: #### L 503.6005, L500.4050, L100.0100 #### [facility] [address] [place], [address] BUN/CRE 16.1 RATIO Normal 10-20 [facility] Comment on above: Performed By: #### L 503.6005, L500.4050, L100.0100 #### [facility] [address] [place], [address] Calcium [Mass/Vol] 9.4 mg/dL Normal 7.6-11.0 [place] Comment on above: Performed By: #### L 503.6005, L500.4050, L100.0100 #### [facility] [address] [place], [address] Chloride [Moles/Vol] 103 mmol/L Normal 98-108 [facility] Comment on above: Performed By: #### L 503.6005, L500.4050, L100.0100 #### [facility] [address] [place], [address] CO2 [Moles/Vol] 24.6 mmol/L Normal 21.0-32.0 [facility] Comment on above: Performed By: #### L 503.6005, L500.4050, L100.0100 #### [facility] [address] [place], [address] Creatinine [Mass/Vol] 1.08 mg/dL Normal 0.70-1.20 [facility] Comment on above: Performed By: #### L 503.6005, L500.4050, L100.0100 #### [facility] [address] [place], [address] ECRCL 38.54 ml/min Low 50-250 [facility] Comment on above: Performed By: #### L 503.6005, L500.4050, L100.0100 #### [facility] [address] [place], [address] GAP 12 Normal 5-15 [facility] Comment on above: Performed By: #### L 503.6005, L500.4050, L100.0100 #### [facility] [address] [place], [address] GFR/1.73 sq M.predicted among non-blacks MDRD (S/P/Bld) [Vol rate/Area] 54 mL/min/{1.73_m2} Low >60 [facility] Comment on above: Result Comment: mL/m in/1.73m2 CKD-EPI Creatinine Equation (2020) Performed By: #### L 503.6005, L500.4050, L100.0100 #### [facility] [address] [place], [address] Globulin (S) [Mass/Vol] 3.3 g/dL Normal 2.2-4.2 [facility] Comment on above: Performed By: #### L 503.6005, L500.4050, L100.0100 #### [facility] [address] [facility] [place], [address] Glucose [Mass/Vol] 112 mg/dL High 70-99 [place] Comment on above: Performed By: #### L 503.6005, L500.4050, L100.0100 #### [facility] [address] [place], [address] Potassium [Moles/Vol] 4.0 mmol/L Normal 3.3-5.1 [facility] Comment on above: Performed By: #### L 503.6005, L500.4050, L100.0100 #### [facility] [address] [place], [address] Sodium [Moles/Vol] 140 mmol/L Normal 133-145 [place] Comment on above: Performed By: #### L 503.6005, L500.4050, L100.0100 #### [facility] [address] [place], [address] T PROT 7.1 g/dL Normal 5.9-8.4 [facility] Comment on above: Performed By: #### L 503.6005, L500.4050, L100.0100 #### [facility] [address] [place], [address] Urea nitrogen [Mass/Vol] 17 mg/dL Normal 4-19 [facility] Comment on above: Performed By: #### L 503.6005, L500.4050, L100.0100 #### [facility] [address] [place], [address] Emergency Department Summary on 08-20-[address] [facility] Department [address] [place] [address] Emergency Department Summary 08/20/24 MR#: [id number] Acct: [id number] Name: ALISIA MANDUJANO Rep #: [id number] : 1950 74 From: Lalo Honeycutt DO PCP: Jennifer Knox NP-C Status:REG ER Location: ED HPI History of Present Illness Chief Complaint: Rash Narrative Narrative: Patient is a 74-year-old female with no known significant past medical history who presents to the emergency department the chief complaint of rash on the right leg. States that yesterday she noted that she had a spot that was very itchy on her right leg and states that she noted today that the rash worsened and she was concerned that this may be related to tick bite. Patient denies any known tick exposure. Patient notes that she noted the rash was spreading and becoming more red therefore she became concerned and came here to be further evaluated. Patient denies any possibility of poison oak or poison delonte exposure. Patient's denies any new medications. PFSH [facility] Home Medications ???Medication ???Instructions ???Recorded ???Last Taken ???Type doxycycline hyclate 100 mg capsule 100 mg PO BID 7 days #14 caps Unknown Rx losartan 50 mg-hydrochlorothiazid e 1 tab PO DAILY 08/20/24 Unknown History 12.5 mg tablet Allergy/AdvReac Type Severity Reaction Status Date / Time No Known Allergies Allergy Verified 08/20/24 19:47 Family History no significant family his Surgical History no surgical history Social History Smoking Status: Never smoker ROS ROS ED ROS Narrative Constitutional: Denies any fevers, chills, headaches Neurological: Denies numbness, weakness, tingling Musculoskeletal: Denies any knee pain Skin: Complains of rash as noted above EXAM Physical Exam Narrative Exam Narrative: General: Patient was lying in bed rest comfortably did not appear to be acute distress Head: Atraumatic, normocephalic Eyes: PERRL bilaterally, EOMI bilateral, no conjunctival injection noted Neck: Soft, supple, trachea midline Cardiovascular: Regular rate and rhythm no murmurs gallops rubs noted Respiratory: Clear to auscultation bilaterally Musculoskeletal: Patient has full range of motion of her knee without any pain Extremities: DP pulses +2/4 in bilateral extremities, +5/5 strength noted in the bilateral upper and lower extremities Neurological: Patient is following commands knew that she was at [facility] year is 2024 Skin: Patient has a raised rash that is red in nature as well as blanches no petechia no sloughing of the skin no purpura noted no crepitus noted Const Vital Signs: 08/20/24 19:45 Temperature 97.5 F L Temperature Source Temporal Pulse Rate 93 Respiratory Rate 16 Blood Pressure 136/80 H Blood Pressure Mean 98 Pulse Ox 100 Oxygen Delivery Method Room Air MDM MDM MDM Narrative Medical decision making narrative: Patient is a 74-year-old female who presented to the emergency department with chief complaint of rash to the right leg. On the differential diagnosis includes but limited to contact dermatitis, cellulitis, pemphigus vulgaris although I have low suspicion for this as this is not a painful rash, bullous pemphigoid, cellulitis. Once workup is obtained reviewed she will be reevaluated. Patient be given a gram of Rocephin. Patient CBC was reviewed showed no evidence leukocytosis white blood count normal at 8, hemoglobin 13.8, platelet count of 242. Patient's sodium normal 140, potassium 4, creatinine normal at 1.08. Patient AST and ALT were 16 and 9 respectively. Patient's lactic acid normal at 1.6. Patient's x- ray of her knee reviewed by myself and by radiology showed degenerative osteoarthritis no other acute findings. On reevaluation the patient the rash is the same when she arrived and has not worsened. On reevaluation patient and she would like to go home this point time. She was advised to keep a close eye on this rash. We will place her on doxycycline and she was advised to take this as prescribed. She was encouraged to follow-up with her doctor in the outpatient setting otherwise. She is agreeable to plan all question concerns answered she was discharged home in stable condition Lab Data Labs: Laboratory Results - last 24 hr 08/20/24 20:05 WBC 8.0 RBC 4.54 Hgb 13.8 Hct 40.2 MCV 88.5 MCH 30.4 MCHC 34.3 RDW Std Deviation 46.9 H RDW Coeff of Alma 14.5 Plt Count 242 MPV 11.9 Immature Gran % (Auto) 0.300 Neut % (Auto) 63.6 Lymph % (Auto) 22.7 Gilchrist % (Auto) 8.9 Eos % (Auto) 3.9 Baso % (Auto) 0.6 Absolute Neuts (auto) 5.1 Absolute Lymphs (auto) 1.81 Nucleated RBC % 0 Sodium 140 (more content not included)... Normal [facility] Eosinophil percentageOrdered By: Lalo Honeycutt on 08-20-2024 Eosinophils/100 WBC (Bld) 3.9 % 0-5 [facility] Erythrocyte distribution wid th ratioOrdered By: Lalo Honeycutt on 08-20-2024 Erythrocyte distribution width (RBC) [Ratio] 14.5 % 11.6-14.6 [facility] Erythrocyte distribution wid th standard deviationOrdered By: Lalo Honeycutt on 08-20-2024 Erythrocyte distribution width (RBC) [Ratio] 46.9 fl High 35.1-43.9 [facility] Glomerular filtration rate ( GFR) estimation/1.73 sq m using serum, plasma, or whole bOrdered By: Lalo Honeycutt on 08-20-2024 GFR/1.73 sq M.predicted among non-blacks MDRD (S/P/Bld) [Vol rate/Area] 54 mL/min/{1.73_m2} Low >60 [facility] Comment on above: mL/min/1.73m2 CKD-EP I Creatinine Equation (2020) Hematocrit Auto (Bld) [Volum e fraction]Ordered By: Laloterrence Honeycutt on 08-20-2024 Hematocrit (Bld) [Volume fraction] 40.2 % 37-47 [facility] Hemoglobin measurementOrdere d By: Lalo Honeycutt on 08-20-2024 Hemoglobin (Bld) [Mass/Vol] 13.8 g/dL 12.0-15.0 [facility] Immature granulocytes/100 WB C Auto (Bld)Ordered By: Lalo Honeycutt on 08-20-2024 Immature granulocytes/100 WBC (Bld) 0.300 % 0.0-0.9 [facility] Comment on above: IG% - Immature Granu locytes (promyelocytes, myelocytes and metamyelocytes) > 1% indicates that a LEFT SHIFT is Present. Knee 4 or More Viewson 08-20 Knee 4 or More Views [facility] Imaging Services [address] [place], [place] [id number] Knee 4 or More Views MR#: [id number] Acct: [id number] Name: ALISIA MANDUJANO Rep #: [id number] : 1950 F 74 From: Kendra Henderson nd, MD PCP: MADDY MorrowC Status: [facility] ER Study: Knee 4 or More Views Date of Exam: 08/20/24 Exam# [id number] Ordering Dr: Lalo Honeycutt DO PROCEDURE: KNEE 4 OR MORE VIEWS 08/20/2024 REASON FOR EXAM: RASH TECHNIQUE: KNEE 4 OR MORE VIEWS COMPARISON: None. FINDINGS: Bones: Diffuse osseous demineralization. No acute fracture. No aggressive osseous lesions. Joints: Severe degenerative changes. Effusion: Small joint effusion. Soft tissues: Soft tissues are unremarkable. RAD/Knee 4 or More Views IMPRESSION: DEGENERATIVE OSTEOARTHROSIS. NO ACUTE FINDINGS. Reading Location: [id number] CC: [employer] SALES ASSOCIATE-C Jennifer Knox; Dr. Lalo Honeycutt DO Conditioner Tumbler Operator: Signed Normal [facility] Laboratory - Chemistry and C hemistry - challengeOrdered By: Lalo Honeycutt on 08-20-2024 AST [Catalytic activity/Vol] 16 U/L <32 [facility] Lactic Acidon 08-20-2024 Lactate [Moles/Vol] 1.6 mmol/L Normal 0.0-2.0 [facility] Comment on above: Order Comment: Y Performed By: #### L 503.6005, L500.4050, L100.0100 #### [facility] [address] [place] [address]. [place], [address] Lactic acid measurementOrder ed By: Lalo Honeycutt on 08-20-2024 Lactate [Moles/Vol] 1.6 mmol/L 0.0-2.0 [facility] MCV (mean corpuscular volume ) determinationOrdered By: aLlo Honeycutt on 08-20-2024 MCV (RBC) [Entitic vol] 88.5 fL 81-99 [facility] Mean corpuscular hemoglobin (MCH) determinationOrdered By: Lalo Honeycutt on 08-20-2024 MCH (RBC) [Entitic mass] 30.4 pg 27.0-32.0 [facility] Mean corpuscular hemoglobin concentration (MCHC) determinationOrdered By: Lalo Honeycutt on 08-20-2024 MCHC (RBC) [Mass/Vol] 34.3 g/dL 32-36 [facility] Mean platelet volume determi nationOrdered By: Lalo Honeycutt on 08-20-2024 Platelet mean volume (Bld) [Entitic vol] 11.9 fL 6.2-12.0 [facility] Monocyte percentageOrdered B y: Lalo Honeycutt on 08-20-2024 Monocytes/100 WBC (Bld) 8.9 % 0-10 [facility] Neutrophil percentageOrdered By: Lalo Honeycutt on 08-20-2024 Neutrophils/100 WBC (Bld) 63.6 % 47-70 [facility] Nucleated red blood cell per centageOrdered By: Lalo Honeycutt on 08-20-2024 Nucleated RBC/100 WBC (Bld) [Ratio] 0 % 0-5 [facility] Platelet countOrdered By: Lalit Honeycutt on 08-20-2024 Platelets (Bld) [#/Vol] 242 10*3/uL 150-450 [facility] Potassium measurement (mass/ volume)Ordered By: Lalo Honeycutt on 08-20-2024 Potassium (Unsp spec) [Mass/Vol] 4.0 mmol/L 3.3-5.1 [facility] RBC Auto (Bld) [#/Vol]Ordere d By: Lalo Honeycutt on 08-20-2024 RBC (Bld) [#/Vol] 4.54 10*6/uL 4.2-5.4 [facility] Serum creatinine measurement (mass/volume)Ordered By: Lalo Honeycutt on 08-20-2024 Creatinine [Mass/Vol] 1.08 mg/dL 0.70-1.20 [facility] Serum globulin measurementOr dered By: Lalo Honeycutt on 08-20-2024 Globulin (S) [Mass/Vol] 3.3 g/dL 2.2-4.2 [facility] Serum glucose measurement (m ass/volume)Ordered By: Lalo Honeycutt on 08-20-2024 Glucose [Mass/Vol] 112 mg/dL High 70-99 [place] Serum or plasma alanine alcaraz otransferase (ALT) measurementOrdered By: Lalo Honeycutt on 08-20-2024 ALT [Catalytic activity/Vol] 9 U/L <35 [facility] Serum or plasma albumin rocio urement (mass/volume)Ordered By: Lalo Honeycutt on 08-20-2024 Albumin [Mass/Vol] 3.8 g/dL 3.4-4.8 [place] Serum or plasma albumin/glob ulin mass ratioOrdered By: Lalo Honeycutt on 08-20-2024 Albumin/Globulin [Mass ratio] 1.2 {ratio} 0.9-2.4 [facility] Serum or plasma alkaline gila sphatase measurementOrdered By: Lalo Honeycutt on 08-20-2024 ALP [Catalytic activity/Vol] 68 U/L 35-104 [facility] Serum or plasma calcium rocio urement (mass/volume)Ordered By: Lalo Honeycutt on 08-20-2024 Calcium [Mass/Vol] 9.4 mg/dL 7.6-11.0 [place] Serum or plasma urea nitroge n measurement (mass/volume)Ordered By: Lalo Honeycutt on 08-20-2024 Urea nitrogen [Mass/Vol] 17 mg/dL 4-19 [facility] [facility] Sodium levelOrdered By: Eitan Honeycutt on 08-20-2024 Sodium [Moles/Vol] 140 mmol/L 133-145 [place] Total proteinOrdered By: Yahir Honeycutt on 08-20-2024 Protein [Mass/Vol] 7.1 g/dL 5.9-8.4 [place] White blood cell (WBC) count Ordered By: Lalo Honeycutt on 08-20-2024 WBC (Bld) [#/Vol] 8.0 10*3/uL 4.4-11.0 [place] Carotid Duplex Ultrasoundon 06-28-2024 Carotid Duplex Ultrasound [facility] [address] [place] [address] Carotid Duplex Ultrasound 06/28/24 0946 MR#: [id number] Acct: [id number] Name: ALISIA MANDUJANO Rep #: [id number] : 1950 74 From: Lucio Austin MD Attending Dr: Jennifer Jason, REAL ESTATE SALES ASSOCIATE-C Status: REG CLI Ordering Dr: Jennifer Knox REAL ESTATE SALES ASSOCIATE-C Date: 06/28/24 Location: [facility] Sex: F C Admitted: Reason For Study [...] the left vertebral artery. Procedure Carotid Duplex 45556. This is a Carotid Duplex examination using B-mode, color flow and specral Doppler. Exam performed in department. VL/Carotid Duplex Ultrasound Interpretation Summary No significant atherosclerotic plaque or stenosis noted in the right internal carotid artery. Mild (<50%) stenosis left extracranial internal carotid. Flow within the vertebral arteries is antegrade bilaterally. Ordering Physician: Jennifer Knox Referring Physician: Jennifer Knox Performed By: Yesenia Joy T 06/28/241743 Date Lucio Austin MD CC: REAL ESTATE SALES ASSOCIATE-C Jennifer Knox Date Dictated: 06/28/24945 Date Transcribed: 06/28/241743 Conditioner Tumbler Operator: Signed Normal [facility] Duplex ultrasound of carotid artery reportOrdered By: Lucio Austin on 06-28-[address] [facility] [address] [place] [address] Carotid Duplex Ultrasound 06/28/24945 MR#: [id number] Acct: [id number] Name: ALISIA MANDUJANO Rep #:[id number] : 1950 74 From: Lucio Austin MD Attending Dr: ALEKSANDAR Morrow Status: REG CLI Ordering Dr: Jennifer Knox REAL ESTATE SALES ASSOCIATEAndres Date: 06/28/24 Location: [facility] Sex: F C Admitted: Reason For Study [...] the left vertebral artery. Procedure Carotid Duplex 44772. This is a Carotid Duplex examination using B-mode, color flow and specral Doppler. Exam performed in department. VL/Carotid Duplex Ultrasound Interpretation Summary No significant atherosclerotic plaque or stenosis noted in the right internal carotid artery. Mild (<50%) stenosis left extracranial internal carotid. Flow within the vertebral arteries is antegrade bilaterally. Ordering Physician: Jennifer Knox Referring Physician: Jennifer Knox Performed By: Yesenia Joy RVT 06/28/24 1744 Date _ Lucio Austin MD CC: REAL ESTATE SALES ASSOCIATEIsaíasC Jennifer Jason ~ Date Dictated: 06/28/2446 Date Transcribed: 06/28/24 8928 Conditioner Tumbler Operator: Signed [facility] Other Phone: ED MED ADMINISTRATION DETAIL on 06-12-2024 ED MED ADMINISTRATION DETAIL Patching Machine Operator Medication Administration Record [place] [id number] [place] [address] [phone] 06/08/2024 Patient: ALISIA MANDUJANO Sex: Female : [...] 06:37 Estephania Mansfield R.N. 1 of 2 Patching Machine Operator Medication Ordered Medication Administration Date/Time Meclizine (Antivert) [...] ear) Not Scanned 2 of 2 Normal [facility] ED NURSES CLINICAL NOTEon ED NURSES CLINICAL NOTE Nurse Narrative Nurse Clinical Narrative [address] [place] [address] [phone] 06/08/2024 06:02:00 Patient: ALISIA MANDUJANO Sex: Female : 1950 Age: 74y Disposition: Discharge to Home Disposition Decision Time: 10:04 06/08/2024 Departure Time: 10:33 06/08/2024 TRIAGE Arrived by EMS. Historian: (patient). Primary physician (Knox ( [place])). Triage time: 06:05 06/08/2024. Acuity: LEVEL 3. [...] 06/08/24 EDT Estephania Mansfield R.N. losartan 50 mg-hydrochlorothiazid e 12.5 mg tablet -- 06:06/08/24 EDT Estephania Mansfield R.N. losartan 50 mg-hydrochlorothiazid e 12.5 mg tablet: 1 tab once a day . -- 06:28 06/08/24 EDT Estephania Mansfield R.N. Sutab 1.479-0.188-0.225 gram tablet: (Pt not taking at this time) -- 06:28 06/08/24 EDT Estephania Mansfield R.N. Allergies: no known drug allergies -- 06:21 06/08/24 ROBT Estephania Mansfield R.N. Problems: Hypertension -- 06:21 06/08/24 EDT Estephania Mansfield R.N. ADDITIONAL SURGERIES: no known surgical history -- 06:06/08/24 ROBT Estephania Mansfield R.N. History 06:06/08/24. SOCIAL HX: Never [...] including fall prevention information. Verbalizes understanding. -- 06:24 06/08/24 KIMBERLY Mansfield R.N. Interventions 2 of 5 Nurse Narrative 06:06/08/24. Identification band on patient. Advanced care plan discussed with patient. Patient does not have advanced directive. -- 06:24 06/08/24 EDT Estephania Mansfield R.N. PHYSICAL ASSESSMENT 06:45 06/08/24. GENERAL [...] is warm and dry. -- 06:45 06/08/24 EDT Estephania Mansfield R.N. NURSING PROGRESS NOTES 06:24 06/08/24. [...] patient including (more content not included)... Normal [facility] ED ORDER SHEET (CPOE ONLY)on 06-12-2024 ED ORDER SHEET (CPOE ONLY) Order Sheet Order Sheet [address] [place] [address] [phone] 06/08/2024 Patient: ALISIA MANDUJANO Sex: Female : 1950 Age: 74y MEASUREMENTS: Wt: 68.0 kg, Ht/Jovany: 70.0 in, BMI: 21.52 ALLERGIES: No known drug allergies MEDICATION/IV/DRIP/FL UID ORDERS Order Description Priority Entered Acknowledged Completed IV NS 0.9 %1000 mL at 999 06:22 06/08/2024 06:29 06:35 mL/hr (NOW x1) Idris Horner D.O. 06/08/2024 06/08/2024 Joaquin Mendoza R.N. Ondansetron IVP4 mg (NOW x1) 06:23 [...] 06/08/2024 Marcial Leyva R.N. Anne Rutt, R.N. EKG - ED Stat Stat 06:22 06/08/2024 06:29 06/08/2024 06:29 06/08/2024 Marcial Leyva R.N. Anne Rutt, R.N. Lactate, Serum Stat Stat 06:22 06/08/2024 06:29 06/08/2024 06:29 06/08/2024 Marcial Leyva, Joaquin Mansfield, R.NKatherine Urinalysis Stat Stat 06:22 06/08/2024 Cancelled: Verbal per Physician Idris Horner D.O. 10:26 EDT Shobha Wood R.N. TSH Stat Stat 06:25 06/08/2024 06:29 06/08/2024 06:30 06/08/2024 Marcial Leyva R.N. Anne Rutt, RKatherineNKatherine 2 of 4 Order Sheet Flu Swab [...] 06:43 Idris Horner D.O. 06/08/2024 06/08/2024 Joaquin Mendoza, R.N. Order Comments: 06:22 06/08/2024: Status: Not . Idris Horner D.O. Reason for Study: Pneumonia CT Brain wo Cont Stat Stat 06:23 06/08/2024 06:29 06:43 Idris Horner D.O. 06/08/2024 06/08/2024 Joaquin Mendoza R.N. Reason for Study: Dizziness STAFF ORDERS Order Description Priority Entered Acknowledged Collected Completed Vital Signs every 30 06:22 06/08/2024 06:29 06/08/2024 06:30 06/08/2024 minutes Marcial Leyva R.N. Anne Rutt, R.N. Freelance Interpreter/Translator 06:22 06/08/2024 06:29 06/08/2024 06:29 06/08/2024 Marcial [...] (06/08/2024 10:12 EDT)] 4 of 4 Normal [facility] ED PHYSICIAN CLINICAL REPORT on 06-12-2024 ED PHYSICIAN CLINICAL REPORT Narrative Physician Clinical [address] [address] [phone] 06/08/2024 06:02:00 Patient: ALISIA MANDUJANO Sex: Female [...] no known surgical history Medications: losartan 50 mg-hydrochlorothiazid e 12.5 mg tablet: 1 tab once a [...] PROCEDURE. THIS ASSAY HAS BEEN VALIDATED AT [facility] FOR USE WITH NASAL AND NASOPHARYNGEAL SWAB [...] TO IC? (more content not included)... Normal [facility] ED SUPER BILLon 06-12-2024 ED SUPER BILL [place] [address] [place] [address] [phone] 06/08/2024 Patient: ALISIA MANDUJANO Sex: Female : 1950 Age: 74y Facility Professional Category Item Description Code Code Quantity Fee Total Drugs Normal Saline 516428 1 $0.00 $0.00 1000cc (514279) Nurse/E/M EMERGENCY 370085 1 $0.00 $0.00 DEPT VISIT HIGH SEVERITYFUNCJ (98670-05) Nurse/IV/IM/Infusions Hydration 110956 3 $0.00 $0.00 additional hour (65277) Nurse/IV/IM/Infusions IVP additional 123504 1 $0.00 $0.00 push (72572) Nurse/IV/IM/Infusions IVP initial (79262) 976057 1 $0.00 $0.00 Grand $0.00 Total Providers Idris Horner D.O. Haroldo Case M.D. 1 of 2 [facility] Chief Complaint DIZZINESS. Principal Diagnosis Acute vertigo of peripheral origin: benign positional vertigo. BPPV. ICD-10 Codes H81.10: Benign paroxysmal vertigo, unspecified ear 2 of 2 [facility] ED VISIT SUMMARYon ED VISIT SUMMARY Visit Overview Visit Overview [address] [place] [address] [phone] 06/08/2024 Patient: ALISIA MANDUJANO Sex: Female : [...] 3 Visit Overview HOME MEDICATIONS losartan 50 mg-hydrochlorothiazid e 12.5 mg tablet: 1 tab once a [...] O2 Sat 06:08 06/08/24 96% O2 Sat 10:06/08/24 Pain 06:08 06/08/24 Pain 10:22 06/08/24 ETCO2 06:08 06/08/24 ETCO2 10:22 06/08/24 GCS 06:08 06/08/24 GCS 10:22 06/08/24 RTS 06:08 06/08/24 RTS 10:22 06/08/24 PROCEDURES NURSING INTERVENTIONS LABS / STUDIES LABS / STUDIES ORDERED CBC w Diff Chest 1V CMP CT Brain wo Cont EKG - ED Flu Swab (Influenzae AAg) Lactate, Serum Rapid COVID (SARS) ANTIGEN TEST Troponin-I TSH CLINICAL IMPRESSION ACUTE VERTIGO OF PERIPHERAL ORIGIN: BENIGN POSITIONAL VERTIGO 3 of 3 Normal [facility] ED VITALS FLOW SHEETon 06-12 ED VITALS FLOW SHEET Vitals Vital Sign Flow Sheet [facility] [address] [place] [address] [phone] 06/08/2024 Patient: ALISIA MANDUJANO Sex: Female : [...] 06/08/2024 72 96% 3 of 3 Normal [facility] CBC + DIFFon 06-08-2024 Baso # 0.01 x10EE3/UL Normal 0.00 - 0.10 [facility] Comment on above: Performed By: #### 2 40841 #### [facility],[address] [place], [place] [id number] Basophils/100 WBC (Bld) 0.2 % Normal 0.0 - 2.0 [facility] Comment on above: Performed By: #### 2 97925 #### [facility],[address] [place] [address] CBC + DIFF Normal [facility] Comment on above: Result Comment: CBC- COMPLETE BLOOD COUNT Performed By: #### 2 84063 #### [facility],[address] [place] [address] EO # 0.27 x10EE3/UL Normal 0.00 - 0.50 [facility] Comment on above: Performed By: #### 2 19143 #### [facility],[address] [place] [address] Eosinophils/100 WBC (Bld) 5.6 % Normal 0.0 - 7.0 [facility] Comment on above: Performed By: #### 2 13181 #### [facility],[address] [place] [address] Erythrocyte distribution width (RBC) [Ratio] 14.3 % Normal 12.0 - 15.6 [facility] Comment on above: Performed By: #### 2 61306 #### [facility],[address] [place] [address] Hematocrit (Bld) [Volume fraction] 40.7 % Normal 34.0 - 46.0 [facility] Comment on above: Performed By: #### 2 60712 #### [facility],[address] [place] [address] Hemoglobin (Bld) [Mass/Vol] 14.0 g/dL Normal 12.0 - 16.0 [facility] Comment on above: Performed By: #### 2 48415 #### [facility],[address] [place] [address] Lymph # 1.82 x10EE3/UL Normal 0.80 - 2.80 [facility] Comment on above: Performed By: #### 2 19973 #### [facility],[address] [place] [address]353 Lymphocytes/100 WBC (Bld) 37.9 % Normal 20.0 - 45.0 [facility] Comment on above: Performed By: #### 2 79846 #### [facility],[address] [place] [address] MANUAL DIFF N/A Normal [facility] Comment on above: Performed By: #### 2 86041 #### [facility],[address] [place] [address] MCH (RBC) [Entitic mass] 30 pg Normal 27 - 33 [facility] Comment on above: Performed By: #### 2 71751 #### [facility],[address] [place] [address] MCHC 34 X10 3 Normal 32 - 36 [facility] Comment on above: Performed By: #### 2 43505 #### [facility],[address] [place], [place] [id number] MCV (RBC) [Entitic vol] 87 fL Normal 80 - 99 [facility] Comment on above: Performed By: #### 2 65202 #### [facility],[address] [place] [address] Gilchrist # 0.36 x10EE3/UL Normal 0.20 - 1.00 [facility] Comment on above: Performed By: #### 2 98639 #### [facility],[address] [place], [place] [phone] MONOS % 7.4 % Normal 0.0 - 10.0 [facility] Comment on above: Performed By: #### 2 22767 #### [facility],[address] [place] [address] 51388 Morphology Reggie (Bld) [Interp] N/A Normal [facility] Comment on above: Performed By: #### 2 87173 #### [facility],[address] [place] [address] 43455 Neut # 2.35 x10EE3/UL Normal 1.50 - 7.10 [facility] Comment on above: Performed By: #### 2 73354 #### [facility],[address] [place] [address] 53748 Neutrophils/100 WBC (Bld) 48.9 % Normal 46.0 - 76.0 [facility] Comment on above: Performed By: #### 2 23818 #### [facility],[address] [place] [address] 48820 PLATELET 228 x10EE3/UL Normal 150 - 450 [facility] Comment on above: Performed By: #### 2 31345 #### [facility],[address] [place] [address] 06034 Platelet mean volume (Bld) [Entitic vol] 8.2 fL Normal 6.6 - 10.5 [facility] Comment on above: Result Comment: AUTO MATED DIFFERENTIAL Performed By: #### 2 02739 #### [facility],[address] [place] [address] 59816 RBC 4.67 x 10EE6/UL Normal 4.10 - 5.30 [facility] Comment on above: Performed By: #### 2 91447 #### [facility],[address] [place] [address] 09348 WBC 4.8 x 10EE3/UL Normal 4.5 - 10.8 [facility] Comment on above: Performed By: #### 2 07675 #### [facility],[address] [place] [address] 77802 CHEST 1 VIEWon 06-08-2024 CHEST 1 VIEW [place] [address] Patient: ALISIA MANDUJANO Phone#: : 1950 Age: 74 Gender: F Pt. Type: ER Account: [id number] Location: 052 Ordering: IDRIS HORNER Exam Date: 06/08/2024/7:06 Family Phys: JENNIFER KNOX Charge Code: [id number] Physician: Jerome Order #: [id number] Dose#: PROCEDURE: X-RAY CHEST 1 VIEW COMPARISON: [...] Jacobs MD on 06/08/2024 at 8:10 Normal [facility] CMP with eGFRon 06-08-2024 AGE 74 years Normal [facility] Comment on above: Performed By: #### 2 71925 #### [facility],[address] [place], [place] [address] Albumin [Mass/Vol] 3.4 g/dL Normal 3.4 - 5.0 [facility] Comment on above: Performed By: #### 2 96572 #### [facility],[address] [place] [address] 60189 Albumin/Globulin [Mass ratio] 0.9 {ratio} Normal 0.9 - 1.6 [facility] Comment on above: Performed By: #### 2 38901 #### [facility],[address] [place] [address] 02596 ALK PHOS 63 U/L Normal 46 - 116 [facility] Comment on above: Performed By: #### 2 43944 #### [facility],[address] [place] [address] 48559 ALT [Catalytic activity/Vol] 24 U/L Normal 16 - 63 [facility] Comment on above: Performed By: #### 2 55245 #### [facility],[address] [place] [address] 26840 Anion gap [Moles/Vol] 14 mmol/L Normal 10 - 20 [facility] Comment on above: Performed By: #### 2 80725 #### [facility],[address] [place] [address] 66179 AST [Catalytic activity/Vol] 15 U/L Normal 13 - 39 [facility] Comment on above: Performed By: #### 2 50875 #### [facility],[address] [place] [address] 40004 B/C RATIO 29 ratio Normal 0 - 30 [facility] Comment on above: Performed By: #### 2 25540 #### [facility],[address] [place] [address] 95472 Bilirubin [Mass/Vol] 0.5 mg/dL Normal 0.2 - 1.0 [facility] Comment on above: Performed By: #### 2 49858 #### [facility],[address] [place] [address] 01147 Calcium [Mass/Vol] 9.1 mg/dL Normal 8.5 - 10.1 [facility] Comment on above: Performed By: #### 2 27258 #### [facility],[address] [place] [address] 76166 Chloride [Moles/Vol] 108 mmol/L High 98 - 107 [facility] Comment on above: Performed By: #### 2 34201 #### [facility],[address] [place] [address] 00462 CMP with eGFR Normal [facility] Comment on above: Result Comment: COMP REHENSIVE METABOLIC PANEL Performed By: #### 2 55639 #### [facility],[address] [place] [address] 31242 CO2 [Moles/Vol] 22.7 mmol/L Normal 21.0 - 32.0 [facility] Comment on above: Performed By: #### 2 45078 #### [facility],[address] [place] [address] 65619 Creatinine [Mass/Vol] 0.90 mg/dL Normal 0.55 - 1.02 [facility] Comment on above: Performed By: #### 2 33704 #### [facility],[address] [place] [address] 53635 GFR/1.73 sq M.predicted among non-blacks MDRD (S/P/Bld) [Vol rate/Area] mL/min/{1.73_m2} Normal 60 - 999 [facility] Comment on above: Performed By: #### 2 17836 #### [facility],[address] [place] [address] 91485 Result Comment: ACCO RDING TO THE NATIONAL KIDNEY DISEASE EDUCATION PROGRAM(NKDE), A NORMAL eGFR IS A VALUE GREATER THAN OR EQUAL TO 60 ML/MIN/1.73 SQ METERS. CHRONIC KIDNEY DISEASE: <60mL/MIN/1.73 SQ METERS KIDNEY FAILURE: <15mL/MIN/1.73 SQ METERS THIS TEST SHOULD ONLY BE USED FOR PATIENTS 18 YEARS OF AGE AND OLDER. Globulin (S) [Mass/Vol] 3.6 g/dL Normal 1.5 - 3.8 [facility] Comment on above: Performed By: #### 2 95025 #### [facility],[address] [place] [address] 77996 Glucose [Mass/Vol] 129 mg/dL High 74 - 106 [facility] Comment on above: Performed By: #### 2 24991 #### [facility],[address] [place] [address] 86117 Potassium [Moles/Vol] 3.6 mmol/L Normal 3.5 - 5.1 [facility] Comment on above: Performed By: #### 2 48586 #### [address] [address] Protein [Mass/Vol] 7.0 g/dL Normal 6.4 - 8.2 [facility] Comment on above: Performed By: #### 2 53292 #### [facility],[address] [place] [address] 19971 Sodium [Moles/Vol] 141 mmol/L Normal 136 - 145 [facility] Comment on above: Performed By: #### 2 51780 #### [facility],[address] [place] [address] 25029 Urea nitrogen [Mass/Vol] 26 mg/dL High 7 - 18 [facility] Comment on above: Performed By: #### 2 97357 #### [facility],[address] [place] [address] 11154 CORONAVIRUS (SARS) ANTIGEN T ESTon 06-08-2024 EXTERNAL QC DONE? YES Normal [facility] Comment on above: Performed By: #### 2 16974 #### [facility],[address] [place] [address] 92429 INTERNAL CONTROL PASS Normal [facility] Comment on above: Performed By: #### 2 20090 #### [facility],[address] [place] [address] 12470 SARS ANTIGEN Negative Normal NORMAL: NEGATIVE [facility] Comment on above: Performed By: #### 2 93124 #### [facility],[address] [place] [address] 47943 SEND TO ? NO Normal [facility] Comment on above: Result Comment: SARS -CoV-2 THIS TEST IS BEING USED UNDER THE FDA EUA PROCEDURE. THIS ASSAY HAS BEEN VALIDATED AT [facility] FOR USE WITH NASAL AND NASOPHARYNGEAL SWAB [...] PUBLIC HEALTH AUTHORITIES. Performed By: #### 2 63396 #### [place] [address] CT BRAIN W/O CONTRAST 05-24 CT BRAIN W/O CONTRAST [place] [address] Patient: ALISIA MANDUJANO Phone#: : 1950 Age: 74 Gender: F Pt. Type: ER Account: [id number] Location: [facility] Ordering: IDRIS HORNER Exam Date: 06/08/2024/6:55 Family Phys: JENNIFER KNOX Charge Code: [id number] Physician: Jerome Order #: [id number] Dose#: 52.3 PROCEDURE: CT BRAIN WITHOUT CONTRAST [...] 74 Gender: F Pt. Type: ER Account: [id number] Location: 052 Ordering: IDRIS HORNER Exam Date: 06/08/2024/6:55 Family Phys: JENNIFER KNOX Charge Code: [id number] Physician: Jerome Order #: [id number] Dose#: 52.3 3. Global atrophy and atherosclerosis 4. Small vessel ischemic disease Dictated by: Noy Jacobs MD on 06/08/2024 at 12:15 Approved by: Noy Jacobs MD on 06/08/2024 at 12:22 Normal [facility] INFLUENZA VIRUS RAPID A/Bon 06-08-2024 INFLUENZA [...] TO THREE DAYS. RESULT CRITICAL? NO Normal [facility] Comment on above: Performed By: #### 2 81972 ####[facility],[address] [place] [address] LACTATEon 06-08-2024 Lactate [Moles/Vol] 0.9 mmol/L Normal 0.4 - 2.0 [facility] Comment on above: Performed By: #### 2 59280 #### [facility],[address] [place] [address] TROPONINon 06-08-2024 HS TROPONIN 5.5 pg/mL Normal 0.0 - 51.4 [facility] Comment on above: Performed By: #### 2 95883 ####[facility],[address] [place] [address] 84132 TSHon 06-08-2024 TSH Qn 8.40 m[IU]/L High 0.35 - 3.74 [facility] Comment on above: Performed By: #### 2 05564 #### [facility],[address] [place] [address] 37894 Vital Signs Date Time Vital Sign Value Performing Clinician Alie monsalve 08-20-2024 21:54-0400 Body temperature 98 [degF] Jennifer Knox REAL ESTATE SALES ASSOCIATE-C Work Phone: [facility] 08-20-2024 21:54-0400 Diastolic blood pressure 65 mm[Hg] Jennifer Knox REAL ESTATE SALES ASSOCIATE-C Work Phone: [facility] 08-20-2024 21:54-0400 Heart rate 76 /min Jennifer Knox REAL ESTATE SALES ASSOCIATE-C Work Phone: [facility] 08-20-2024 21:54-0400 Respiratory rate 16 /min Jennifer Jason REAL ESTATE SALES ASSOCIATE-C Work Phone: [facility] 08-20-2024 21:54-0400 SaO2% (BldA) [Mass fraction] 94 % Jennifer Jason REAL ESTATE SALES ASSOCIATE-C Work Phone: [facility] 08-20-2024 21:54-0400 Systolic blood pressure 116 mm[Hg] Jennifer Knox REAL ESTATE SALES ASSOCIATE-C Work Phone: [facility] 08-20-2024 19:45-0400 Body height 152.4 cm Jennifer Jason REAL ESTATE SALES ASSOCIATE-C Work Phone: [facility] 08-20-2024 19:45-0400 Body mass index (BMI) [Ratio] 28.1 kg/m2 Jennifer Jason [employer] ESTATE SALES ASSOCIATE-C Work Phone: [facility] 08-20-2024 19:45-0400 Body weight 65.31 kg Jennifer Knox REAL ESTATE SALES ASSOCIATE-C Work Phone: [facility] Encounters Encounter Date Encounter Type Care Provider Facility Start: 11-14-2024 ambulatory Jennifer Jason Facility :[facility] Start: 08-20-2024 End: 08-20-2024 Emergency department patient visit Jennifer Jason [employer] ESTATE SALES ASSOCIATE-C Work Phone: -Emergency Department Work Phone: Start: 06-28-2024 End: 06-28-2024 ambulatory Jennifer Knox [employer] ESTATE SALES ASSOCIATE-C Work Phone: [facility] Work Phone: Start: 06-28-2024 End: 06-28-2024 Patient encounter procedure Jennifer Knox [employer] ESTATE SALES ASSOCIATE-C -Cardiovascular Services Work Phone: Start: 06-28-2024 End: 06-28-2024 ambulatory Jennifer Knox Facility:[facility] Start: 06-08-2024 End: 06-08-2024 Emergency department patient visit JENNIFER KNOX [facility] Procedures Date Procedure Procedure Detail Performing Clinician Start: 08-20-2024 Estimated creatinine clearance Jennifer Knox [employer] ESTATE SALES ASSOCIATE-C Work Phone: Start: 08-20-2024 X-ray of knee, four or more views Jennifer Knox REAL ESTATE SALES ASSOCIATE-C Work Phone: Plan of Treatment Date Care Activity Detail Author Start: 08-20-2024 [facility] Payers Date Payer Category Payer Self-pay 2024 Medicare [id number] 1950 Unknown [id number] [id number] Unknown [id number] 2.16.8 [id number] Unknown [id number] 2.16.8 [id number] Unknown [id number] 2.16.8 [id number] Social History Date Type Detail Facility Tobacco smoking stat [facility] Unknown if ever smoked [facility] Work Phone: Start: 1950 Sex Assigned At Female [facility] Start: 08-20-2024 [facility] Discharge summary 08-20-2024 Note Date & Type Note Facility 08-20-2024 Discharge summary [facility] Radiology Diagnostic study note 08-20-2024 Note Date & Type Note Facility 08-20-2024 Radiology Diagnostic study note [facility] Imaging Services [address], [place] [id number] Knee 4 or More Views MR#: [id number] Acct: [id number] Name: ALISIA MANDUJANO Rep #: [id number] : 1950 F 74 From: Daria Crump MD PCP: ALEKSANDAR Morrow Status: REG E R Study:Knee 4 or More Views Date of Exam: 08/20/24 Exam# [id number] Ordering Dr: Emiliano Honeycutt DO PROCEDURE: KNEE 4 OR MORE VIEWS 08/20/2024 REASON FOR EXAM: RASH TECHNIQUE: KNEE 4 OR MORE VIEWS COMPARISON: None. FINDINGS: Bones: Diffuse osseous demineralization. No acute fracture. No aggressive osseous lesions. Joints: Severe degenerative changes. Effusion: Small joint effusion. Soft tissues: Soft tissues are unremarkable. RAD/Knee 4 or More Views IMPRESSION: DEGENERATIVE OSTEOARTHROSIS. NO ACUTE FINDINGS. Reading Location: [id number] CC: REAL ESTATE SALES ASSOCIATE-C Jennifer Knox; Dr. Lalo Honeycutt DO ~ Conditioner Tumbler Operator: Signed [facility] Discharge summary 08-20-2024 Note Date & Type Note Facility 08-20-2024 Discharge summary Note Date/Time August 20, 2024 9:50pm [facility] Records Department [address] [place] [address] Emergency Department Summary 08/20/24 MR#: [id number] Acct: [id number] Name: ALISIA MANDUJANO Rep #:[id number] : 1950 74 From: Lalo Honeycutt DO PCP: ALEKSANDAR Morrow Status:REG E R Location: ED HPI History of Present Illness Chief Complaint: Rash Narrative Narrative: Patient is a 74-year-old female with no known significant past medical history who presents to the emergency department the chief complaint of rash on the right leg. States that yesterday she noted that she had a spot that was very itchy on her right leg and states that she noted today that the rash worsened and she was concerned that this may be related to tick bite. Patient denies anyknown tick exposure. Patient notes that she noted the rash was spreading and becoming more red therefore she became concerned and came here to be further evaluated. Patient denies any possibility of poison oak or poison delonte exposure. Patient's denies any new medications. [facility] Home Medications ?Medication ?Instructions ?Recorded ?Last Taken ?Type doxycycline hyclate 100 mg capsule 100 mg PO BID 7 day s #14 caps 08/20/24 Unknown Rx losartan 50 mg-hydrochlorothiazide 1 tab PO DAILY 07/25 10/17 Unknown History 12.5 mg tablet Allergy/AdvReac Type Severity Reaction Status Date / Time No Known Allergies Allergy Verified 08/20/24 19:47 Family History no significant family his Surgical History no surgical history Social History Smoking Status: Never smoker ROS ROS ED ROS Narrative Constitutional: Denies any fevers, chills, headaches Neurological: Denies numbness, weakness, tingling Musculoskeletal: Denies any knee pain Skin: Complains of rash as noted above EXAM Physical Exam Narrative Exam Narrative: General: Patient was lying in bed rest comfortably did not appear to be acute distress Head: Atraumatic, normocephalic Eyes: PERRL bilaterally, EOMI bilateral, no conjunctival injection noted Neck: Soft, supple, trachea midline Cardiovascular: Regular rate and rhythm no murmurs gallops rubs noted Respiratory: Clear to auscultation bilaterally Musculoskeletal: Patient has full range of motion of her knee without any pain Extremities: DP pulses +2/4 in bilateral extremities, +5/5 strength noted in thebilateral upper and lower extremities Neurological: Patient is following commands knew that she was at [facility] year is 2024 Skin: Patient has a raised rash that is red in nature as well as blanches no petechia no sloughing of the skin no purpura noted no crepitus noted Const Vital Signs: 08/20/24 19:45 Temperature 97.5 F L Temperature Source Temporal Pulse Rate 93 Respiratory Rate 16 Blood Pressure 136/80 H Blood Pressure Mean 98 Pulse Ox 100 Oxygen Delivery Method Room Air MDM MDM MDM Narrative Medical decision making narrative: Patient is a 74-year-old female who presented to the emergency department with chief complaint of rash to the right leg. On the differential diagnosis includes but limited to contact dermatitis, cellulitis, pemphigus vulgaris although I have low suspicion for this as this is not a painful rash, bullous pemphigoid, cellulitis. Once workup is obtained reviewed she will be reevaluated. Patient be given a gram of Rocephin. Patient CBC was reviewed showed no evidence leukocytosis white blood count normal at 8, hemoglobin 13.8, platelet count of 242. Patient's sodium normal 140, potassium 4, creatinine normal at 1.08. Patient AST and ALT were 16 and 9 respectively. Patient's lactic acid normal at 1.6. Patient's x-ray of her kneereviewed by myself and by radiology showed degenerative osteoarthritis no other acute findings. On reevaluation the patient the rash is the same when she arrived and has not worsened. On reevaluation patient and she would like to go home this point time. She was advised to keep a close eye on this rash. We will place her on doxycycline and she was advised to take this as prescribed. She was encouraged to follow-up with her doctor in the outpatient setting otherwise. She is agreeable to plan all question concerns answered she was discharged home in stable condition Lab Data Labs: Laboratory Results - last 24 hr 08/20/24 20:05 WBC 8.0 RBC 4.54 Hgb 13.8 Hct 40.2 MCV 88.5 MCH 30.4 MCHC 34.3 RDW Std Deviation 46.9 H RDW Coeff of Alma 14.5 Plt Count 242 MPV 11.9 Immature Gran % (Auto) 0.300 Neut % (Auto) 63.6 Lymph % (Auto) 22.7 Gilchrist % (Auto) 8.9 Eos % (Auto) 3.9 Baso % (Auto) 0.6 Absolute Neuts (auto) 5.1 Absolute Lymphs (auto) 1.81 Nucleated RBC % 0 Sodium 140 Potassium 4.0 Chloride 103 Carbon Dioxide 24.6 Anion Gap 12 BUN 17 Creatinine 1.08 Estim Creat Clear Calc 38.54 L Est GFR (MDRD) Non-Af 54 L BUN/Creatinine Ratio 16.1 Glucose 112 H Lactic Acid 1.6 Calcium 9.4 Total Bilirubin 0.25 AST 16 ALT 9 Alkaline Phosphatase 68 Total Protein 7.1 Albumin 3.8 Globulin 3.3 Albumin/Globulin Ratio 1.2 Radiography Diagnostic Testing: Clinical Impression(s) from Imaging Studies Knee X-Ray 08/20/24 20:03 IMPRESSION: DEGENERATIVE OSTEOARTHROSIS. NO ACUTE FINDINGS. Reading Location: [facility] Discharge Plan Triage Chief Complaint: Rash ED Provider: Lalo Honeycutt Dx/Rx/DC Orders Clinical Impression: Rash, Cellulitis Prescriptions: New doxycycline hyclate 100 mg capsule 100 mg PO BID 7 Days Qty: 14 0RF No Action losartan-hydrochlorothiazide 50-12.5 mg tablet 1 tab PO DAILY Primary Care Provider: Jennifer Knox Referrals: Jennifer Knox, REAL ESTATE SALES ASSOCIATE-C [Primary Care Provider] - Activity Restrictions/Additional Instructions: Take antibiotics as prescribed. Return with worsening symptoms or any other concerns. Keep a close eye on this if this is rapidly expanding and worsening you need to return to the emergency department immediately. According to the online website the pharmacy at [place] will be open tomorrow at 10 AM therefore a prescription was sent there Print Language: Amharic Disposition Disposition: Home, Self Care What to do if you have Problems For any increased pain, shortness of breath, bleeding, nausea or vomiting, chestpain, or any unexpected problems, contact your Primary Care Provider. Call [facility] ([phone]) or report to the closest Emergency Room. Call 911 if necessary. [id number]/20/[id number] <Electronically signed by Lalo Honeycutt DO> Cosigner Signature (if applicable): CC: REAL ESTATE SALES ASSOCIATEAndres Knox ~ Signed [facility] Work Phone: Evaluation note Note Date & Type Note Facility Evaluation note No assessment information availa ble [facility] Work Phone: Hospital Discharge instructions Note Date & Type Note Facility Hospital Discharge instructions Additional Instructions Take antibiotics as prescribed. Return with worsening symptoms or any other concerns. Keep a close eye on this if this is rapidly expanding and worsening you need to return to the emergency department immediately. According to the online website the pharmacy at [place] will be open tomorrow at 10 AM therefore a prescription was sent there [facility] Work Phone: Reason for referral (narrative) Note Date & Type Note Facility Reason for referral (narrative) No reason for referral information available [facility] Work Phone: Summary Purpose Family History No Family History Records FoundNo Family History Records Found Advance Directives No Advanced Directives Records Found Advance Directive Response Recorded Date/ Time Do you have a Healthcare Power of Fitter Mechanic? No August 20, 2024 7:50pm Chief Complaint and Reason for Visit Chief Complaint Admit Date CAROTID ARTERY STENOSIS June 28, 2024 9: 40am Chief Complaint Admit Date CAROTID ARTERY STENOSIS June 28, 2024 9: 40am CAROTID ARTERY STENOSIS June 28, 2024 9: 46am rash August 20, 2024 7:44 pm Additional Source Comments INFORMATION SOURCE (unrecogn ized section and content) DATE CREATED AUTHOR 06/13/2024 Georges Painting [facility] DATE CREATED AUTHOR AUTHOR'S DARIEN NIXON 11/12/2024 [facility] Care Teams (unrecognized sec tion and content) Team Status: Active Member Role Status Dates Jennifer Knox , REAL ESTATE SALES ASSOCIATE-C Primary Care Provider Active Team Status: Inactive Member Role Status Dates Jennifer Knox REAL ESTATE SALES ASSOCIATE-C Primary Care Provider Active Start: June 28, 2024 End: June 28, 2024 Jennifer Knox , REAL ESTATE SALES ASSOCIATE-C Attending Provider Active Start: June 28, 2024 End: June 28, 2024 Jennifer Knox , REAL ESTATE SALES ASSOCIATE-C Referring Provider Active Start: June 28, 2024 End: June 28, 2024 Team Status: Active Member Role/Relationship Status Dates Jennifer Knox , REAL ESTATE SALES ASSOCIATE-C Primary Care Provider Active Team Status: Inactive Member Role/Relationship Status Dates Jennifer Knox , REAL ESTATE SALES ASSOCIATE-C Primary Care Provider Active Start: June 28, 2024 End: June 28, 2024 Jennifer Knox , REAL ESTATE SALES ASSOCIATE-C Attending Provider Active Start: June 28, 2024 End: June 28, 2024 Jennifer Knox , REAL ESTATE SALES ASSOCIATE-C Referring Provider Active Start: June 28, 2024 End: June 28, 2024 Team Status: Active Member Role/Relationship Status Dates Dr. Lucio Austin MD Attending Provider Active Start: June 28, 2024 Jennifer Knox , REAL ESTATE SALES ASSOCIATE-C Referring Provider Active Start: June 28, 2024 Team Status: Inactive Member Role/Relationship Status Dates Jennifer Knox REAL ESTATE SALES ASSOCIATE-C Primary Care Provider Active Start: August 20, 2024 End: August 20, 2024 Dr. Lalo Honeycutt DO Referring Provider Active Start: August 20, 2024 End: August 20, 2024 Dr. Lalo Honeycutt DO Emergency Provider Active Start: August 20, 2024 End: August 20, 2024 Goals (unrecognized section and content) Goals may be documented in a n alternate sectionGoals may be documented in an alternate section FOR RECORDS PERTAINING TO PATIENTS [...] BE BASED ON THE PRIMARY CLINICAL RECORDS. [facility] [employer] [facility]. provides no warranty or guarantee of the accuracy or completeness of information in this document.
== END | disposition home or self-care (01) ==
LOC: OPBI 12:11
PROVIDERS: PCP Nurse Practitioner Family; Referring Provider Nurse Practitioner Family; Visit Provider Nurse Practitioner Family
DX: Z12.31 Encounter for screening mammogram for malignant neoplasm of breast (principal)
CPT/HCPCS: 77063; 77067